=== PATIENT | female | born 1985 | race Caucasian/White ===

== ENCOUNTER 2022-01-02 15:51 | Emergency (ER) | payer OTHER ==
--- OUTSIDE RECORDS SUMMARY | 2022-01-02 15:58 | XMS REPORT | Continuity of Care Document ---
:1985 Author Organization [facility] t Address [address] [place] [address] Care Team Providers Name Role Phone Iasak Worley Primary Care Physician ALLY MILLER Attending Clinician Unavailable STELLA LUQUE Attending Clinician Unavailable Tia Cardenas Attending Clinician Unavailable RAFAEL TODD Attending Clinician Unavailable TAMMY Attending Clinician Unavailable Pallavi Felix RN Attending Clinician Unavailable Sarah Herring MA Attending Clinician Unavailable STELLA LUQUE Attending Clinician Unavailable SUZETTE SMITH Attending Clinician Unavailable MATEO MADERA M.D. Attending Clinician Unavailable STELLA LUQUE M.D. Attending Clinician Unavailable JOVI SULTANA M.D. Attending Clinician Unavailable SUZETTE SMITH M.D. Attending Clinician Unavailable ALLY MILLER M.D. Attending Clinician UnavailREBEL Lebron M.D. Attending Clinician Unavailable SINDHU KILPATRICK M.D. Attending Clinician Unavailable OB/MD, POSPROVIDER Attending Clinician Unavailable OB/MD, HIGH Attending Clinician Unavailable FANNINEKG, WALK-INS Attending Clinician Unavailable OB/RES, US Attending Clinician Unavailable OB/RES, ULTRASOUND Attending Clinician Unavailable SYMONE MCKAY M.D. Attending Clinician Unavailable PANFILO MORA M.D. Attending Clinician Unavailable STELLA LUQUE M.D. 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 00:00: without without 00 status status epilepticu epilepticu s s Neuropsych Neuropsych Disease Active 2020-04 U T iatric iatric 05-01 Health disorder disorder 00:00: 00 History of History of Problem Resolve UT Anxiety Anxiety d Physici ans History of History of Problem Resolve UT Dyslexia Dyslexia d Physic i ans Exercise-i Exercise-i Problem Active U T nduced nduced Physici shortness shortness ans of breath of breath Tobacco Tobacco Problem Active UT smoke smoke Physici exposure exposure ans Siria Siria Problem Active UT infection infection Phys ici of genital of genital an s region region Bacterial Bacterial Problem Active UT vaginosis vaginosis Phys ici ans Abnormal Abnormal Problem Active UT glucose glucose Physici tolerance tolerance ans in in HRP (high HRP (high Problem Active UT risk risk Physici ) ) an s Seizure Seizure Problem Active UT disorder disorder Physic i ans History of History of Problem Active U T 2 2 Ph ysici sections sections ans Problem Active U T exam exam Physici ans Thyroid Thyroid Problem Active UT nodule nodule Physici ans 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 Physic i of of ans unspecifie unspecifie d kidney d 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 Phys ici ans 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 Hypoglycem Hypoglycem Problem Active U T ia ia Physici ans History of History of Problem Resolve UT tuberous tuberous d Physic i sclerosis sclerosis ans Allergies, Adverse Reactions, Alerts Allergy Allergy Status Severity Reaction(s) Onset Inactive Treating Comm ents Source Name Type Date Date Clinician Penicill Allergy Active UT ins to drug Physici (finding ans ) NEUROTIN Adverse Active RASH Common Reaction [facility] PCN Adverse Active raSH Common Reaction [facility] Family History Family Member Diagnosis Comments Start Date Stop Date Source natural daughter Family history of [facility] tuberous sclerosis Social History Social Habit Start Date Stop Date Quantity Comments Source Exposure to SARS-CoV-2 Not sure [facility] (event) Sex Assigned At [birth year] [facility] 00:00:00 00:00:00 Smoking Status Start Date Stop Date Source Smokes tobacco daily (finding) [facility] Tobacco smoking consumption unknown [facility] Medications Ordered Filled Start Stop Current Ordering Indication Dosage Frequency Signature Comments Components Source Medication Medication Date Date Medication? Clinician (SIG) Name Name everolimus 2020-04 Yes [id number] TAKE 1 U T ([employer]) 2-13 TABLET (5 Heal th 5 MG tablet 00:00: MG TOTAL) 00 BY MOUTH 1 (ONE) TIME EACH DAY. SWALLOW WHOle with a glass of water. Do not take any tablet that is broken or cr everolimus 2020-04 Yes TAKE 1 U T ([employer]) 2-13 TABLET (5 Heal th 5 MG tablet 00:00: MG TOTAL) 00 BY MOUTH 1 (ONE) TIME EACH DAY. SWALLOW WHOle with a glass of water. Do not take any tablet that is broken or cr everolimus 2020-04 Yes [id number] TAKE 1 U T ([employer]) 2-13 TABLET (5 Heal th 5 MG tablet 00:00: MG TOTAL) 00 BY MOUTH 1 (ONE) TIME EACH DAY. SWALLOW WHOle with a glass of water. Do not take any tablet that is broken or cr everolimus 2020-04 Yes [id number] TAKE 1 U T ([employer]) 2-13 TABLET (5 Heal th 5 MG tablet 00:00: MG TOTAL) 00 BY MOUTH 1 (ONE) TIME EACH DAY. SWALLOW WHOle with a glass of water. Do not take any tablet that is broken or cr everolimus 2020-04 Yes [id number] TAKE 1 U T ([employer]) 2-13 TABLET (5 Heal th 5 MG tablet 00:00: MG TOTAL) 00 BY MOUTH 1 (ONE) TIME EACH DAY. SWALLOW WHOle with a glass of water. Do not take any tablet that is broken or cr everolimus 2020-04 Yes [id number] TAKE 1 U T ([employer]) 2-13 TABLET (5 Heal th 5 MG tablet 00:00: MG TOTAL) 00 BY MOUTH 1 (ONE) TIME EACH DAY. SWALLOW WHOle with a glass of water. Do not take any tablet that is broken or cr everolimus 2020-04 Yes [id number] TAKE 1 U T ([employer]) 2-13 TABLET (5 Heal th 5 MG tablet 00:00: MG TOTAL) 00 BY MOUTH 1 (ONE) TIME EACH DAY. SWALLOW WHOle with a glass of water. Do not take any tablet that is broken or cr everolimus 2020-04 Yes TAKE 1 U T ([employer]) 2-13 TABLET (5 Heal th 5 MG tablet 00:00: MG TOTAL) 00 BY MOUTH 1 (ONE) TIME EACH DAY. SWALLOW WHOle with a glass of water. Do not take any tablet that is broken or cr everolimus 2020-04 Yes TAKE 1 U T ([employer]) 2-13 TABLET (5 Heal th 5 MG tablet 00:00: MG TOTAL) 00 BY MOUTH 1 (ONE) TIME EACH DAY. SWALLOW WHOle with a glass of water. Do not take any tablet that is broken or cr everolimus 2020-04 Yes [id number] TAKE 1 U T ([employer]) 2-13 TABLET (5 Heal th 5 MG tablet 00:00: MG TOTAL) 00 BY MOUTH 1 (ONE) TIME EACH DAY. SWALLOW WHOle with a glass of water. Do not take any tablet that is broken or cr everolimus 2020-04 Yes [id number] TAKE 1 U T ([employer]) 2-13 TABLET (5 Heal th 5 MG tablet 00:00: MG TOTAL) 00 BY MOUTH 1 (ONE) TIME EACH DAY. SWALLOW WHOle with a glass of water. Do not take any tablet that is broken or cr Blood Blood 2018-0 Yes ALLY USE UT Glucose Glucose 6-14 CLINT- DIRECTED. Physici Monitor Monitor 00:00: AHSANA ans System System 00 M.D. w/Device w/Device Kit Kit Afinitor 5 Afinitor 5 2019-0 Yes SUZETTE 1 QD TAKE 1 UT MG Oral MG Oral 6-04 SMITH TABLET Phys ici Tablet Tablet 00:00: M.D. DAILY ans 00 FreeStyle FreeStyle Yes ALLY USE UT Lite Device Lite Device 09-03 CLINT- DIRECTED. Physici 00:00: BURITICA ans 00 M.D. FreeStyle FreeStyle Yes ALLY USE UT Lancets Lancets 09-03 CLINT- DIRECTED. Physici 00:00: BURITICA ans 00 M.D. FreeStyle FreeStyle Yes ALLY USE UT Lite Test Lite Test 09-03 CLINT- DIRECTED. Physici In Vitro In Vitro 00:00: BURITICA a ns Strip Strip 00 M.D. 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 28-0.8 MG 28-0.8 MG 7-05 Physi ci Oral Tablet Oral Tablet 00:00: ans 00 Immunizations Ordered Immunization Filled Immunization Date Status Commen ts Source Name Name Tdap 2017-01-02 Completed [facility] 00:00:00 Vital Signs Vital Name Observation Time Observation Value Comments Source BP Systolic 2018-09-02 117 mm[Hg] [facility] 08:58:00 BP Diastolic 2018-09-02 66 mm[Hg] [facility] 08:58:00 Height 2018-09-02 159 cm [facility] 08:58:00 Weight 2018-09-02 69 kg [facility] 08:58:00 Body Mass Index 2018-09-02 27.29 kg/m2 [facility] Physician s Calculated 08:58:00 Temperature 2018-09-02 98.4 [degF] [facility] 08:58:00 Heart Rate 2018-09-02 79 /min [facility] 08:58:00 Head Circumference 2018-09-02 55.5 cm [facility]ic ians 08:58:00 BP Systolic 2017 110 mm[Hg] Location: RUE; [place] [facility] 13:09:00 Position: Sitting BP Diastolic 2017 69 mm[Hg] Location: RUE; [facility] 13:09:00 Position: Sitting Height 2017 62 [in_us] [facility] 13:09:00 Weight 2017 148.5 [lb_av] [facility] 13:09:00 Body Mass Index 2017 27.16 kg/m2 [facility] Physician s Calculated 13:09:00 BP Systolic 2017-02-06 115 mm[Hg] Location: RUE; [facility] 09:49:00 Position: Sitting BP Diastolic 2017-02-06 65 mm[Hg] Location: RUE; [facility] 09:49:00 Position: Sitting Height 2017-02-06 62 [in_us] [facility] 09:49:00 Weight 2017-02-06 173 [lb_av] [facility] 09:49:00 Body Mass Index 2017-02-06 31.64 kg/m2 [facility] s Calculated 09:49:00 Temperature 2017-02-06 98.1 [degF] Method: Oral [facility] 09:49:00 Heart Rate 2017-02-06 71 /min [facility] 09:49:00 BP Systolic 2017-01-30 128 mm[Hg] Location: RUE; [facility] 09:24:00 Position: Sitting BP Diastolic 2017-01-30 77 mm[Hg] Location: RUE; [place] [facility] 09:24:00 Position: Sitting Height 2017-01-30 62 [in_us] [facility] 09:24:00 Weight 2017-01-30 171 [lb_av] [facility] 09:24:00 Body Mass Index 2017-01-30 31.28 kg/m2 [facility]ician s Calculated 09:24:00 Heart Rate 2017-01-30 76 /min [facility] 09:24:00 Procedures Procedure Date / Time Performed Performing Clinician Sour e [QL] CBC (INCLUDES DIFF/PLT) 2020-06-30 00:00:00 [facility] [QL] CMP W/EGFR 2020-06-30 00:00:00 [facility] s [QL] LIPID PANEL 2020-06-30 00:00:00 [facility] Physicia ns [QL] PHOSPHATE ( 2020-06-30 00:00:00 UT Physic ians PHOSPHORUS) [QL] PTH, INTACT (WITHOUT 2020-06-30 00:00:00 [facility] CALCIUM) [QL] MAGNESIUM 2020-06-30 00:00:00 [facility] Physician s [QL] CYSTATIN C 2020-06-30 00:00:00 [facility]ician s [QL] URINALYSIS, COMPLETE 2020-06-30 00:00:00 [facility] [QL] CBC (INCLUDES DIFF/PLT) 2020-04-26 00:00:00 [facility] [QL] CMP W/EGFR 2020-04-26 00:00:00 [facility] Physician s [QL] LIPID PANEL 2020-04-26 00:00:00 [facility] Physicia ns [QL] PHOSPHATE ( 2020-04-26 00:00:00 UT Physic ians PHOSPHORUS) [QL] PTH, INTACT (WITHOUT 2020-04-26 00:00:00 [facility] CALCIUM) [QL] URINALYSIS, COMPLETE 2020-04-26 00:00:00 [facility] [QL] CYSTATIN C 2020-04-26 00:00:00 [facility] Physician s [QL] MAGNESIUM 2020-04-26 00:00:00 [facility] Physician s MRI Abdomen with and without 2020-04-26 00:00:00 [facility] contrast [id number] [QL] CBC (INCLUDES DIFF/PLT) 2019-10-15 00:00:00 [facility] [QL] CMP W/EGFR 2019-10-15 00:00:00 [facility]ician s [QL] LIPID PANEL 2019-10-15 00:00:00 [facility] Physicia ns [QL] PHOSPHATE ( 2019-10-15 00:00:00 UT Physic ians PHOSPHORUS) [QL] PTH, INTACT (WITHOUT 2019-10-15 00:00:00 [facility] CALCIUM) [QL] MAGNESIUM 2019-10-15 00:00:00 [facility] Physician s [QL] URINALYSIS, COMPLETE 2019-10-15 00:00:00 [facility] MRI Abdomen with and without 2019-09-05 00:00:00 [facility] contrast [id number] EEG 2018-09-03 00:00:00 [facility] Physician s US Thyroid [id number] 2018-09-03 00:00:00 [facility] Physicia ns [QLH] CMP W/EGFR 2018-09-02 00:00:00 [facility] Phys[facility] ns [QLH] CBC (INCLUDES 2018-09-02 00:00:00 [facility] DIFF/PLT) [Q] EVEROLIMUS, BLOOD 2018-09-02 00:00:00 [facility] [QLH] LIPID PANEL 2018-09-02 00:00:00 [facility] Physici ans [QLH] PTH, INTACT (WITHOUT 2018-09-02 00:00:00 [facility] CALCIUM) [QLH] PHOSPHATE ( 2018-09-02 00:00:00 [facility] c[facility] PHOSPHORUS) [QL] THYROID PANEL WITH TSH, 2018-09-02 00:00:00 [facility] 3RD GENERATION [QLH] T4, FREE 2018-09-02 00:00:00 [facility] [QH] THYROGLOBULIN PANEL 2018-09-02 00:00:00 [facility] [QH] THYROGLOBULIN 2018-09-02 00:00:00 [facility] ANTIBODIES [QLH] INSULIN 2018-09-02 00:00:00 [facility] [QH] PROINSULIN 2018-09-02 00:00:00 [facility] s [QLH] HEMOGLOBIN A1c 2018-09-02 00:00:00 [facility] [QLH] C-PEPTIDE 2018-09-02 00:00:00 [facility] s [QLH] THYROID PEROXIDASE 2018-09-02 00:00:00 [facility] ANTIBODIES US Thyroid [id number] 2018-07-05 00:00:00 [facility] ns [Q] HCG, TOTAL, QL 2018-06-06 00:00:00 [facility] i[facility] MRI Brain w/wo contrast 2018-05-23 00:00:00 [facility] 00376 MRI Abdomen with and without 2018-05-23 00:00:00 [facility] contrast [id number] CT Chest wo contrast [id number] 2018-05-23 00:00:00 [facility] MRI Abdomen with and without 2017-10-10 00:00:00 [facility] contrast [id number] MRI Brain w/wo contrast 2017-10-10 00:00:[address] [facility] [address] [address] CT Chest w/wo contrast 12640 2017-10-10 00:00:00 [facility] EKG w/Rhythm Strip 2017-01-30 00:00:00 [facility] [Q] HIV AB, HIV 1/2, EIA, 2017-01-30 00:00:00 [facility] WITH REFLEXES History of Section [facility] Plan of Care Planned Activity Planned Date Details Comments Source Diagnostic Test 2020-04-26 [QL] CBC (INCLUDES [facility] Pending 00:00:00 DIFF/PLT) [code = [QL] CBC (INCLUDES DIFF/PLT)] Diagnostic Test 2020-04-26 [QL] CMP W/EGFR [facility] Pending 00:00:00 [code = [QL] CMP W/EGFR] Diagnostic Test 2020-04-26 [QL] LIPID PANEL [facility] Pending 00:00:00 [code = [QL] LIPID PANEL] Diagnostic Test 2020-04-26 [QL] PHOSPHATE ( [facility] Pending 00:00:00 PHOSPHORUS) [code = [QL] PHOSPHATE ( PHOSPHORUS)] Diagnostic Test 2020-04-26 [QL] PTH, INTACT [facility] Pending 00:00:00 (WITHOUT CALCIUM) [code = [QL] PTH, INTACT (WITHOUT CALCIUM)] Diagnostic Test 2020-04-26 [QL] URINALYSIS, [facility] Pending 00:00:00 COMPLETE [code = [QL] URINALYSIS, COMPLETE] Diagnostic Test 2020-04-26 [QL] CYSTATIN C [facility] Pending 00:00:00 [code = [QL] CYSTATIN C] Diagnostic Test 2020-04-26 [QL] MAGNESIUM [facility] ans Pending 00:00:00 [code = [QL] MAGNESIUM] Diagnostic Test 2020-04-26 [QL] CBC (INCLUDES [facility] Pending 00:00:00 DIFF/PLT) [code = [QL] CBC (INCLUDES DIFF/PLT)] Diagnostic Test 2020-04-26 [QL] CMP W/EGFR [facility] i[facility] Pending 00:00:00 [code = [QL] CMP W/EGFR] Diagnostic Test 2020-04-26 [QL] LIPID PANEL [facility] Pending 00:00:00 [code = [QL] LIPID PANEL] Diagnostic Test 2020-04-26 [QL] PHOSPHATE ( [facility] Pending 00:00:00 PHOSPHORUS) [code = [QL] PHOSPHATE ( PHOSPHORUS)] Diagnostic Test 2020-04-26 [QL] PTH, INTACT [facility] Pending 00:00:00 (WITHOUT CALCIUM) [code = [QL] PTH, INTACT (WITHOUT CALCIUM)] Diagnostic Test 2020-04-26 [QL] URINALYSIS, [facility] Pending 00:00:00 COMPLETE [code = [QL] URINALYSIS, COMPLETE] Diagnostic Test 2020-04-26 [QL] CYSTATIN C [facility] i[facility] Pending 00:00:00 [code = [QL] CYSTATIN C] Diagnostic Test 2020-04-26 [QL] MAGNESIUM [facility] ans Pending 00:00:00 [code = [QL] MAGNESIUM] Diagnostic Test 2019-01-31 US Thyroid 64082 [facility] Pending 00:00:00 [code = 55068] Future Scheduled MRI Abdomen with After 10Oct2017 [facility] Test and without contrast 67046 [code = 62620] Future Scheduled MRI Brain w/wo After [id number] [facility] Test contrast 80139 [code = 34433] Future Scheduled CT Chest w/wo After [id number] [facility] Test contrast 97679 [code = 78668] Future Scheduled MRI Abdomen with After [id number] [facility] Test and without contrast 98741 [code = 31701] Future Scheduled MRI Brain w/wo After [id number] [facility] Test contrast 43896 [code = 58876] Future Scheduled CT Chest w/wo After [id number] [facility] Test contrast 85947 [code = 80831] Future Scheduled [Q] HCG, TOTAL, QL After 06Jun2018 [facility] Test [code = [Q] HCG, TOTAL, QL] Future Scheduled [Q] HCG, TOTAL, QL After 06Jun2018 [facility] Test [code = [Q] HCG, TOTAL, QL] Future Scheduled US Thyroid 47543 After 05Jul2018 [facility] Test [code = 66230] Future Scheduled US Thyroid 23309 After 05Jul2018 [facility] Test [code = 57904] Future Scheduled [QLH] CMP W/EGFR Approx [id number] [facility] Test [code = [QLH] CMP W/EGFR] Future Scheduled [QLH] CBC Approx [id number] [facility] Test (INCLUDES DIFF/PLT) [code = [QLH] CBC (INCLUDES DIFF/PLT)] Future Scheduled [Q] EVEROLIMUS, Approx [id number] [facility] Test BLOOD [code = [Q] EVEROLIMUS, BLOOD] Future Scheduled [QLH] LIPID PANEL Approx [id number] [facility] Test [code = [QLH] LIPID PANEL] Future Scheduled [QLH] PTH, INTACT Approx [id number] [facility] Test (WITHOUT CALCIUM) [code = [QLH] PTH, INTACT (WITHOUT CALCIUM)] Future Scheduled [QLH] PHOSPHATE Approx [id number] [facility] Test ( PHOSPHORUS) [code = [QLH] PHOSPHATE ( PHOSPHORUS)] Future Scheduled [QLH] CMP W/EGFR Approx [id number] [facility] Test [code = [QLH] CMP W/EGFR] Future Scheduled [QLH] CBC Approx [id number] [facility] Test (INCLUDES DIFF/PLT) [code = [QLH] CBC (INCLUDES DIFF/PLT)] Future Scheduled [Q] EVEROLIMUS, Approx [id number] [facility] Test BLOOD [code = [Q] EVEROLIMUS, BLOOD] Future Scheduled [QLH] LIPID PANEL Approx [id number] [facility] Test [code = [QLH] LIPID PANEL] Future Scheduled [QLH] PTH, INTACT Approx [id number] [facility] Test (WITHOUT CALCIUM) [code = [QLH] PTH, INTACT (WITHOUT CALCIUM)] Future Scheduled [QLH] PHOSPHATE Approx [id number] [facility] Test ( PHOSPHORUS) [code = [QLH] PHOSPHATE ( PHOSPHORUS)] Encounters Start End Encounter Admission Attending Care Care Encounter Source Date/Time Date/Time Type Type Clinicians Facility Department ID 2021-12-30 Outpatient [facility] [id number] [place] 10:30:55 [id number] [facility] 2021-12-29 Outpatient [facility] [id number] [place] 13:08:25 [id number] [facility] 2021-11-18 Outpatient [facility] [id number] UT 15:16:36 [id number] [facility] 2021-09-12 Outpatient [facility] [id number] UT 14:29:50 URITICA, [id number] [facility] 2021-09-05 Outpatient [facility] [id number] UT 06:56:35 [id number] [facility] 2021-08-23 Outpatient [facility] [id number] UT 08:06:49 URITICA, [id number] [facility] 2021-07-19 Outpatient REBEL, [facility] [id number] UT 07:01:58 STELLA [id number] [facility] 2021-07-06 Outpatient REBEL, [facility] [id number] UT 09:52:11 STELLA [id number] [facility] 2021-05-17 Outpatient HARIKA Cardenas [facility] [id number] Common 09:12:01 [facility] 2021-04-27 Outpatient HARIKA Cardenas [facility] [id number] Common 14:34:17 Tia [facility] 2021-04-27 Outpatient Theresa, STLMLC STLMLC [id number] Common 13:20:36 Tia [id number] [facility] 2021-04-27 Outpatient Theresa, STLMLC STLMLC [id number] Common 13:14:17 Tia [id number] [facility] 2022-08-02 2022-08-02 Outpatient PEYTON, [facility] [id number] [place] 15:00:00 15:00:00 [facility] 2022-01-02 2022-01-02 Outpatient [facility] [id number] [place] 11:00:00 11:00:00 Pedro FRENCH 2021-10-20 2021-10-20 ambulatory STLMLC STLC [id number] Common 00:00:00 00:00:00 [facility] 2021-10-11 2021-10-11 Outpatient HEAVEN EVANGELISTA [facility] [id number] [place] 02:29:00 02:29:00 HN [id number] [facility] 2021-09-05 2021-09-05 Telephone Pallavi Felix UTP [id number] 1.2.84 0.114 [id number] [place] 00:00:00 00:00:[address] [id number] Health [id number] [id number] 2021-09-02 2021-09-02 Telephone Kaelynyohana Pallavi UTP 6410 1.2.84 0.114 [id number] UT 00:00:00 00:00:[address] [id number] Health 9.2.7.2.686 [id number] 2021-08-23 2021-08-23 Telephone Kaelynyohana Pallavi UTP 6410 1.2.84 0.114 [id number] [place] 00:00:00 00:00:[address] [id number] Health [id number] [id number] 2021-07-21 2021-07-21 ambulatory STLMLC STLMLC [id number] Common 00:00:00 00:00:00 [facility] 2021-07-19 2021-07-19 TelemedicNICCI Peralta [id number] [id number] [place] 08:45:00 09:54:[address] [id number] Health 9.2.7.2.686 [id number] 2021-07-18 2021-07-18 Telephone Sarah Herring UTP 6410 [id number] [place] 00:00:00 00:00:[address] [id number] Health 9.2.7.2.686 [id number] 2021-07-12 2021-07-12 Telephone Pallavi Felix UTP 6410 1.2.84 0.114 [id number] [place] 00:00:00 00:00:[address] [id number] Health 9.2.7.2.686 [id number] 2021-07-01 2021-07-01 Telephone Pallavi Felix UTP 6410 1.2.84 0.114 [id number] [place] 00:00:00 00:00:[address] [id number] Health 9.2.7.2.686 [id number] 2021-06-07 2021-06-07 Telephone Pallavi Felix UTP 6410 1.2.84 0.114 [id number] [place] 00:00:00 00:00:[address] [id number] Health 9.2.7.2.686 [id number] 2021-05-26 2021-05-26 ambulatory STLMLC STLMLC [id number] Common 00:00:00 00:00:00 [facility] 2021-05-26 2021-05-26 Telephone Pallavi Felix UTP 6410 1.2.84 0.114 [id number] [place] 00:00:00 00:00:00 Pallavi Felix [id number] Health 9.2.7.2.686 [id number] 2021-05-19 2021-05-19 ambulatory STLMLC STLMLC [id number] Common 00:00:00 00:00:00 [facility] 2021-04-27 2021-04-27 Telephone Pallavi Felix UTP [id number] 1.2.84 0.114 [id number] [place] 00:00:00 00:00:00 Pallavi Felix [id number] Health 9.2.7.2.686 [id number] 2021-04-21 2021-04-21 Telephone Pallavi Felix UTP 6410 1.2.84 0.114 [id number] [place] 00:00:00 00:00:00 Pallavi Felix [id number] Health 9.2.7.2.686 [id number] 2021-02-15 2021-02-15 Outpatient REBEL, [facility] [id number] [facility] 12:08:00 23:59:00 STELLA 2021-02-01 2021-02-01 EXT [facility] OP Rebel, EXT MSRDP 1.2.840.114 [id number] [place] 00:00:00 00:00:00 Stella Shaw [facility] [id number] Health 9.2.7.2.686 [id number] 2020-09-27 2020-09-[address] [facility] [id number] SLE 00:00:00 00:00:00 SUZETTE 2020-07-22 2020-07-22 Outpatient MAX SMITH, [facility] [id number] SLE 00:00:00 00:00:00 SUZETTE 2018-11-11 2018-11-11 [facility] UTP [id number] [place] 14:45:00 14:45:00 t; ALEE, Physic i Lolis MCINTYRE ROSA, M.D. 2018-09-02 2018-09-02 AppointNICCI Dexter Pedi [id number] [place] 09:45:00 09:45:00 t; STELLA LUQUE, Nephrology Physici STELLA SHAW M.D. & amara Danielle Hypertensio n 2018-09-02 2018-09-02 Abiola SULTANA [facility] Pediatrics [id number] [place] 09:30:00 09:30:00 t; Lolis ESPANA Division of Physici KAYY, Medical ans Lolis ESPANA Genetics 2018-09-02 2018-09-02 NICCI Mckeon Pedi [id number] [place] 09:00:00 09:00:00 t; SUZETTE, Nephrology Phtaz SMITH M.D. & Brock Crandall M.D. n 2018-09-02 2018-09-02 Abiola GRAJEDA Pedi [id number] [place] 09:00:00 09:00:00 t; GILLIAN, Nephrology Ph chavez CANALES M.D. & Brock Pimentel n M.D. 2018-06-27 2018-06-27 Out[facility] [id number] Common 15:00:00 15:00:00 [facility] 2018-06-21 2018-06-21 Outpatient [facility] [id number] Common 12:00:00 12:00:00 t [facility] [address] Family [facility] Family Medicine [facility] 2017-04-27 2017-04-27 Appointjeff GRAJEDA UTP [id number] [place] 10:45:00 10:45:00 t; TODD LYNN Physi ci REBEL LYNN ans CHELSEA, M.D. M.D. 2017-03-28 2017-03-28 AppointNICCI Doshi UTP [id number] [place] 09:30:00 09:30:00 t; SINDHU KILPATRICK M.D. P hysici FARAH, ans M.D. 2017 2017 Appointmen OB/MD, UTP [employer] Supervisor [id number] [place] 13:30:00 13:30:00 t; OB/MD, POSPROVIDER Physici POSPROVIDE ans R 2017-02-06 2017-02-06 Appointmen OB/MD, HIGH UTP UTP [id number] [place] 10:00:00 10:00:00 t; OB/MD, Phys ici HIGH ans 2017-01-30 2017-01-30 Appointmen FANNINEKG, UTP UTP [id number] [place] 10:30:00 10:30:00 t; WALK-INS Physi ci FANNINEKG, ans WALK-INS 2017-01-30 2017-01-30 Appointmen OB/MD, HIGH UTP UTP [id number] [place] 09:00:00 09:00:00 t; OB/MD, Phys ici HIGH ans 2017-01-02 2017-01-02 Appointmen OB/MD, HIGH UTP UTP [id number] [place] 09:00:00 09:00:00 t; OB/MD, Phys ici HIGH ans 2016-12-28 2016-12-28 Appointmen OB/RES, US UTP UTP [id number] [place] 10:00:00 10:00:00 t; OB/RES, Phy sici US ans 2016-12-19 2016-12-19 Appointmen OB/MD, HIGH UTP UTP [id number] [place] 09:00:00 09:00:00 t; OB/MD, Phys ici HIGH ans 2016-11-02 2016-11-02 Appointmen OB/MD, HIGH UTP UTP [id number] [place] 10:00:00 10:00:00 t; OB/MD, Phys ici HIGH ans 2016-10-19 2016-10-19 Appointmen OB/RES, UTP UTP [id number] [place] 14:30:00 14:30:00 t; OB/RES, ULTRASOUND Physici ULTRASOUND ans 2016-10-19 2016-10-19 Appointmen OB/MD, HIGH UTP UTP [id number] [place] 08:30:00 08:30:00 t; OB/MD, Phys ici HIGH ans 2016-10-04 2016-10-04 Appointmen WOODY, UTP UTP [id number] [place] 08:00:00 08:00:00 t; SYMONE MCKAY, Lolis Acevedo M.D. 2016-07-31 2016-07-31 [facility] UTP [id number] [place] 09:30:00 09:30:00 t; Lolis ESPANA ans HOPE, M.D. 2015-11-25 2015-11-25 [facility] [id number] [place] 09:30:00 09:30:00 t; PANFILO MORA M.D. Physici KEELY, ans M.D. 2015-05-27 2015-05-27 [facility] [id number] [place] 08:45:00 08:45:00 t; PANFILO MORA M.D. Physici KEELY, ans M.D. 2015-03-08 2015-03-08 [facility] [id number] [place] 09:30:00 09:30:00 t; Lolis ESPANA ans HOPE, M.D. 2015-03-08 2015-03-08 [facility] [id number] [place] 09:15:00 09:15:00 t; STELLA LUQUE M.D. Physici MARY, M.D. ans Results Test Description Test Time Test Comments Results Result Comments Source [QL] URINALYSIS, COMPLETE 2020-07-09 11:30:00 Test Item Value Reference Range Interpretation Comme nts COLOR; Normal (test code = YELLOW YELLOW N 5778-6) APPEARANCE (test code = CLEAR CLEAR N APPEARANCE) SPECIFIC GRAVITY; Normal (test 1.009 1.001-1.035 N code = 2965-2) PH; Normal (test code = 5.5 5.0-8.0 N 2756-5) GLUCOSE; Normal (test code = NEGATIVE NEGATIVE N 1547-9) BILIRUBIN; Normal (test code = NEGATIVE NEGATIVE N 58852-5) KETONES; Normal (test code = NEGATIVE NEGATIVE N 42991-4) OCCULT BLOOD; Normal (test NEGATIVE NEGATIVE N code = 47369-0) PROTEIN; Normal (test code = NEGATIVE NEGATIVE N 28788-5) NITRITE; Normal (test code = NEGATIVE NEGATIVE N 73323-7) LEUKOCYTE ESTERASE (test code NEGATIVE NEGATIVE N = LEUKOCYTE ESTERASE) WBC; Normal (test code = NONE SEEN See_Comment N [A utomated message] The system 6690-2) which generated this result transmitted ref erence range: < OR = 5. The ref erence range was not used to int erpret this result as gus l/abnormal. RBC; Normal (test code = NONE SEEN See_Comment N [A utomated message] The system 789-8) which generated this result transmitted ref erence range: < OR = 2. The ref erence range was not used to int erpret this result as gsu l/abnormal. SQUAMOUS EPITHELIAL CELLS; NONE SEEN See_Comment N [Automated message] The system Normal (test code = 18273-6) which generated this result transmitted ref erence range: < OR = 5. The ref erence range was not used to int erpret this result as gus l/abnormal. BACTERIA; Abnormal (test code MANY NONE SEEN A = 630-4) HYALINE CAST; Normal (test NONE SEEN NONE SEEN N code = 48595-2) [facility][QL] CBC (INCLUDES DIFF/PLT)2020-07-09 11:30:00 Test Item Value Reference Range Interpretation Comments WHITE BLOOD CELL COUNT 4.9 {Thousand/u} 3.8-10.8 N (test code = WHITE BLOOD CELL COUNT) RED BLOOD CELL COUNT (test 4.03 {Million/uL} 3.80-5.10 N code = RED BLOOD CELL COUNT) HEMOGLOBIN; Below Low 11.4 g/dl 11.7-15.5 Threshold (test code = 76348-9) HEMATOCRIT; Normal (test 35.6 % 35.0-45.0 N code = 4544-3) MCV; Normal (test code = 88.3 fL 80.0-100.0 N 787-2) MCHC; Normal (test code = 32.0 g/dl 32.0-36.0 N 15021-1) RDW; Normal (test code = 12.7 % 11.0-15.0 N 788-0) PLATELET COUNT; Normal 342 {Thousand/u} 140-400 N (test code = 777-3) MPV; Normal (test code = 9.6 fL 7.5-12.5 N 49388-1) ABSOLUTE NEUTROPHILS (test 3048 {cells/uL} 1257-2882 N code = ABSOLUTE NEUTROPHILS) ABSOLUTE LYMPHOCYTES (test 1230 {cells/uL} 850-3900 N code = ABSOLUTE LYMPHOCYTES) ABSOLUTE MONOCYTES (test 466 {cells/uL} 200-950 N code = ABSOLUTE MONOCYTES) ABSOLUTE EOSINOPHILS (test 118 {cells/uL} 15-500 N code = ABSOLUTE EOSINOPHILS) ABSOLUTE BASOPHILS (test 39 {cells/uL} 0-200 N code = ABSOLUTE BASOPHILS) NEUTROPHILS (test code = 62.2 % N NEUTROPHILS) LYMPHOCYTES (test code = 25.1 % N LYMPHOCYTES) MONOCYTES; Normal (test 9.5 % N code = 01865-7) EOSINOPHILS; Normal (test 2.4 % N code = 11347-2) BASOPHILS; Normal (test 0.8 % N code = 57045-2) [facility][QL] LIPID [id number] 11:30:00 Test Item Value Reference Range Interpretation Comments CHOLESTEROL, TOTAL; 152 mg/dl <200 N Normal (test code = 2092-3) HDL CHOLESTEROL; 53 mg/dl See_Comment N [Automated message] Normal (test code = The syst em which 2084-12) generated this result transmit cornell reference range : > OR = 50. The reference range was not used to interpret this result as normal/abnormal . TRIGLYCERIDES; 66 mg/dl <150 N Normal (test code = 2571-8) LDL-CHOLESTEROL; 84 {MG/DL JASBIR} N Reference range: Normal (test code = <100 Zhao irable range 64476-8) <100 mg/dL for primary prevent ion; <70 mg/dL for patients with C HD or diabetic patien ts with > or = 2 C HD risk factors. L DL-C is now calculat ed using the Johnson-Amadeo calculation, wh ich is a validated novel method providin g better accuracy than the Friedewald equation in the estimation of L DL-C. Johnson SS et al . TIARRA. 2013;310( 19): 8296-6109 (http://educati on.Sangart. com/f aq/XTY769) CHOL/HDLC RATIO 2.9 {CALC} <5.0 N (test code = CHOL/HDLC RATIO) NON HDL CHOLESTEROL 99 {MG/DL JASBIR} <130 N For pa tients with (test code = NON HDL diabete s plus 1 CHOLESTEROL) major ASCVD ris k factor, treatin g to a non-HDL-C goa l of <100 mg/dL (LDL -C of <70 mg/dL) is considered a therapeutic opt ion. [facility][QL] [id number] 11:30:00 Test Item Value Reference Range Interpretation Comments MAGNESIUM (test code = MAGNESIUM) 1.8 mg/dl 1.5-2.5 N [facility][QL] PHOSPHATE ( PHOSPHORUS)2020-07-09 11:30:00 Test Item Value Reference Range Interpretation Comments PHOSPHATE ( PHOSPHORUS) (test 3.2 mg/dl 2.5-4.5 N code = PHOSPHATE ( PHOSPHORUS)) [facility][QL] CMP [id number] 11:30:00 Test Item Value Reference Range Interpretation Comments GLUCOSE; Normal 89 mg/dl 65-99 N Fasting refe rence (test code = interval 1547-9) UREA NITROGEN (BUN) 20 mg/dl 7-25 N (test code = UREA NITROGEN (BUN)) CREATININE (test 1.03 mg/dl 0.50-1.10 N code = CREATININE) eGFR NON-AFR. 70 {ML/MIN/1.7} See_Comment N [Automated PORTUGUESE (test code message] The system = eGFR NON-AFR. which genera cornell PORTUGUESE) this result transmitted reference range : > OR = 60. The reference range was not used to interpret this result as normal/abnormal . eGFR 82 {ML/MIN/1.7} See_Comment N [Automated PORTUGUESE (test code message] The system = eGFR which generat ed PORTUGUESE) this result transmitted reference range : > OR = 60. The reference range was not used to interpret this result as normal/abnormal . BUN/CREATININE NOT APPLICABLE 6-22 RATIO (test code = BUN/CREATININE RATIO) SODIUM (test code = 141 mmol/L 135-146 N SODIUM) POTASSIUM (test 4.8 mmol/L 3.5-5.3 N code = POTASSIUM) CHLORIDE (test code 106 mmol/L 98-110 N = CHLORIDE) CARBON DIOXIDE 28 mmol/L 20-32 N (test code = CARBON DIOXIDE) CALCIUM (test code 9.3 mg/dl 8.6-10.2 N = CALCIUM) PROTEIN, TOTAL 6.9 g/dl 6.1-8.1 N (test code = PROTEIN, TOTAL) ALBUMIN (test code 4.4 g/dl 3.6-5.1 N = ALBUMIN) GLOBULIN (test code 2.5 {G/DL CALC} 1.9-3.7 N = GLOBULIN) ALBUMIN/GLOBULIN 1.8 {CALC} 1.0-2.5 N RATIO (test code = ALBUMIN/GLOBULIN RATIO) BILIRUBIN, TOTAL; 0.3 mg/dl 0.2-1.2 N Normal (test code = 58519-6) ALKALINE 52 u/l 31-125 N PHOSPHATASE (test code = ALKALINE PHOSPHATASE) AST; Normal (test 20 u/l 10-30 N code = 1916-6) ALT; Normal (test 20 u/l 6-29 N code = 1742-6) [facility][QL] PTH, INTACT (WITHOUT CALCIUM)2020-07-09 11:30:00 Test Item Value Reference Interpretation Comments Range PARATHYROID 152 pg/ml 14-64 Interpretive Gu hiro Intact PTH HORMONE, INTACT Calcium----- (test code = ---- ---Normal PARATHYROID Parathyroid Nor mal HORMONE, INTACT) NormalHypop arathyroidism Low or Low Normal LowHyperparathy roidism Primary Normal or High High Secondary High Normal or Low Tertiary High HighNon-Parathy roid Hypercalcemia L ow or Low Normal High REPORT COMMENT:FASTING:[facility][Q] CYSTATIN C WITH [id number] 11:30:00 Test Item Value Reference Range Interpretation Comments CYSTATIN C (test 1.38 mg/L 0.52-1.24 code = CYSTATIN C) eGFR (test code = 52 {ML/MIN/1.7} See_Comment [Autom ated message] eGFR) The system [employer] generated this result transmitted ref erence range: > OR = 6 0. The reference range was not used to int erpret this result as normal/abnormal . REPORT COMMENT:FASTING:[facility]] [id number] 12:13:01 Test Item Value Reference Range Interpretation Comments Insulin Level Total 4.0 {uIU/ml} Referenc e Ranges for (test code = 3695-4) Insulin after 12-hour fast: 3-19 uIU/ mL, a non-fastingrang e has not been establ ished. [facility]] CMP [id number] 12:13:01 Test Item Value Reference Range Interpretation Comments Sodium Level 142 {mEq/l} 135-145 (test code = 2951-2) Potassium Level 4.3 {mEq/l} 3.5-5.1 (test code = 2823-3) Chloride Level; 110 {mEq/l} 95-109 Above High Threshold (test code = 5-0) Carbon Dioxide 25 {mEq/l} 24-32 (test code = 2027-9) AGAP (test code = 11.3 {mEq/l} 10.0-20.0 96329-9) Glucose Lvl (test 81 mg/dl 70-99 Adult refe rence range code = 2345-7) values reflec t the clinical guidel inesof the [place] Diabet es Association. Creatinine Lvl 1.10 mg/dl 0.50-1.40 (test code = 2160-0) Blood Urea 18 mg/dl 7-22 Nitrogen (test code = 3094-0) BUN/Creatinine 16 6-25 Ratio (test code = 3097-3) Total Protein 7.3 g/dl 6.4-8.4 (test code = 2885-2) Albumin Lvl (test 3.9 g/dl 3.5-5.0 code = 1751-7) Globulin (test 3.4 g/dl 2.7-4.2 code = 89620-5) A/G Ratio (test 1.1 0.7-1.6 code = 1759-0) Calcium Level 9.2 mg/dl 8.5-10.5 Total (test code = 68535-3) ALT (test code = 18 u/l 0-65 1743-4) AST (test code = 16 u/l 0-37 64743-1) Alk Phos (test 57 u/l 39-136 code = 1783-0) Bili Total (test 0.3 mg/dl 0.2-1.3 code = 1974-) eGFR (test code = 66 The eGFR i s calculated 13451-4) {ML/MIN/1.7} using the CKD-E PI formula. In mos t young, healthyindividu als the eGFR will be >9 0 mL/min/1.73m2. The eGFR declines with a ge. AneGFR of 60-89 may be normal in some population s, particularly th e elderly, forwhom the CKD -EPI formula has not been extensively zaida idated. Use of the eGFR isnot recommended in the following populations:Ind ividuals with unstable c reatinine concentrations, including patient s and those with seri ous co-morbid conditions.Phuong ents with extremes in mus rohith mass or diet.The colette a above are obtained fr om the National Kidney Disease Education Progr am(NKDEP) which ascencion edwards recommends that when the eGFR is used in patientswith ex tremes of body mass index for purposes of peter g dosing, the eGFR should be multiplied by t he estimated BMI. [facility]] LIPID [id number] 12:13:01 Test Item Value Reference Range Interpretation Comments Chol (test code = 2093-3) 124 mg/dl <=199 Trig (test code = 2571-8) 98 mg/dl <=149 HDL Cholesterol; Below Low 35 mg/dl >=61 Threshold (test code = 2085-9) CHD Risk; Below Low Threshold (test 3.54 3.90-5.80 code = 85637-2) LDL (test code = 03603-8) 69 mg/dl <=99 VLDL (test code = VLDL) 20 [facility]] PHOSPHATE ( PHOSPHORUS)2018-09-02 12:13:01 Test Item Value Reference Range Interpretation Comments Phosphorus Level (test code = 3.3 mg/dl 2.5-4.5 2777-1) [facility]] T4, [id number] 12:13:01 Test Item Value Reference Range Interpretation Comments T4 Free (test code = 3024-7) 1.10 ng/dl 0.76-1.46 [facility][QL] THYROID [id number] 12:13:01 Test Item Value Reference Range Interpretation Comments TSH (test code = 41431-0) 1.570 {uIU/ml} 0.360-3.740 T3 Uptake (test code = 3050-2) 35 % 31-39 Thyroxine (test code = 3026-2) 9.0 ug/dL 4.7-13.3 [facility][H] Free Thyroxine [id number] 12:13:01 Test Item Value Reference Range Interpretation Comments Free Thyroxine Index (test code = 3.2 75279-9) [facility][QL] CBC (INCLUDES DIFF/PLT)2018-09-02 12:13:01 Test Item Value Reference Range Interpretation Comments WBC (test code = 6690-2) 4.0 {K/CMM} 3.7-10.4 RBC; Below Low Threshold (test 3.92 {M/CMM} 4.20-5.40 code = 789-8) Hgb; Below Low Threshold (test 11.4 g/dl 12.0-16.0 code = 718-7) Hct; Below Low Threshold (test 33.8 % 36.0-48.0 code = 85003-7) MCV (test code = 787-2) 86.1 fL 80.0-98.0 MCH (test code = 785-6) 29.1 pg 27.0-31.0 MCHC (test code = 786-4) 33.8 g/dl 32.0-36.0 RDW (test code = 788-0) 13.4 % 11.5-14.5 Platelet (test code = 68968-9) 304 {K/CMM} 133-450 Mean Platelet Volume (test code 8.1 fL 7.4-10.4 = 46210-3) [facility][QL] [id number] 12:13:01 Test Item Value Reference Range Interpretation Comments Segmented Neutrophils (test code 60.2 % 45.0-75.0 = 29288-6) Monocytes (test code = 74708-3) 7.5 % 2.0-12.0 Lymphocytes (test code = 35201-5) 28.8 % 20.0-40.0 Eosinophils (test code = 89530-2) 2.7 % 0.0-4.0 Basophils (test code = 706-2) 0.8 % 0.0-1.0 Segs-Bands # (test code = 2.4 {K/CMM} 1.5-8.1 33585-1) Lymphocytes # (test code = 1.1 {K/CMM} 1.0-5.5 31327-0) Monocytes # (test code = 80073-7) 0.3 {K/CMM} 0.0-0.8 Eosinophils # (test code = 0.1 {K/CMM} 0.0-0.5 27430-9) [facility][QLH] PTH, INTACT (WITHOUT CALCIUM)2018-09-02 12:13:01 Test Item Value Reference Range Interpretation Comments Parathyroid Hormone Intact; Above 300.4 pg/ml 18.4-80.1 High Threshold (test code = 2731-8) [facility][QL[facility]] HEMOGLOBIN [id number] 12:13:01 Test Item Value Reference Range Interpretation Comments Hemoglobin A1c (test code = 4548-4) 4.8 % <=5.6 [facility][QH] THYROGLOBULIN [id number] 12:13:01 Test Item Value Reference Range Interpretation Comments Thyroglobulin Antibody (test code = <15 <=60 90261-5) [facility][QL[facility]] THYROID PEROXIDASE [id number] 12:13:01 Test Item Value Reference Range Interpretation Comments Thyroid Peroxidase (TPO) Antibody 36 {IU/ml} <=60 (test code = 90818-8) [facility][QH] [id number] 12:13:01 Test Item Value Reference Range Interpretation Comments Proinsulin Level (test 3.1 pmol/L 0.0-10.0 Perfo rmed At: BN code = Proinsulin [facility] Level) [address] [id number] ra Miguelina RICHARDSON Ph:[phone] [facility][QLH] TSH, 3RD [id number] 12:00:01 Test Item Value Reference Range Interpretation Comments TSH (test code = Cancel Reason: System 48276-9) Cancel [facility][O] Urine Dipstick (In Office)2018-09-02 10:25:00 Test Item Value Reference Range Interpretation Comments Glucose (test code = Glucose) NEGATIVE N LEUKOCYTES (test code = NEGATIVE N LEUKOCYTES) NITRITE; Normal (test code = NEGATIVE N 73258-4) UROBILINOGEN; Normal (test code = 0.2 N 56880-7) PROTEIN (test code = 36550-1) TRACE pH (test code = pH) 6.0 N URINE BLOOD; Normal (test code = NEGATIVE N 60875-3) SPECIFIC GRAVITY; Normal (test 1.020 N code = 2965-2) KETONES; Normal (test code = NEGATIVE N 58047-3) BILIRUBIN; Normal (test code = NEGATIVE N 69220-4) COLOR URINE (test code = 5778-6) DARK YELLOW [facility] Thyroid [id number] 11:49:00EXAM: US THYROIDDATE: 07/10/2018 11:49 CDTINDICATION: Q85.1 Tuberous sclerosis - Q85.1 Tuberous sclero sisADDITIONAL INFORMATION: Thyroid abnormalities identified on recent computedtomography scanCOMPARISON: None.TECHNIQUE: Multiplanar grayscale and color Doppler ultrasound images of theneck were obtained in the area of the thyroid.DISCUSSION:Thyroid parenchyma: Diffusely homogeneous in the underlying p arenchyma.Right thyroid size: 4.8 x 2 x 2 cmLeft thyroid size: 3.7 x 1.2 x 1.1 cmIsthmus: 5.1 mm in thicknessNodule 1:Location: Right mid lobeSize: 1.1 x 0.62 x 1.2 cmComposition: Solid or almost completely solid (2 points).Echogenicity: Very hypoechoic (3 points).Shape: Wider than tall (0 points).Margins: Smooth (0 points).Echogenic foci: Absent (0 points).Other: None.ACR TI-RADS Score: TR4 - Moderately suspicious (total 4-6 points).-- ACR recommendation: =1.5 cm FNA; =1 cm f/u in 1, 2, 3, and 5 years; <1 cm nof/u or FNA.Nodule 2:Location: Left mid lobeSize: 2.8 x 3.1 x 1.3 mmComposition: Solidor almost completely solid (2 points).Echogenicity: Hypoechoic (2 points).Shape: Wider than tall (0 p oints).Margins: Smooth (0 points).Echogenic foci: Absent (0 points).Other: None.ACR TI-RADS Score: TR4 - Moderately suspicious (total 4-6 points).-- ACR recommendation: =1.5 cm FNA; =1 cm f/u in 1, 2, 3, and 5 years; <1 cm nof/u or FNA.Nodule 3:Location: Left mid lobe, more inferior than the above n oduleSize: 3.6 x 3.9 x 2.4 millimetersComposition: Solid or almost completely solid (2 points).Echogenicity: Hypoechoic (2 points).Shape: Wider than tall (0 points).Margins: Smooth (0 points).Echogenicfoci: Absent (0 points).Other: None.ACR TI-RADS Score: TR4 - Moderately suspicious (total 4-6 points).-- ACR recommendation: =1.5 cm FNA; =1 cm f/u in 1, 2, 3, and 5 years; <1 cm nof/u or FNA.IMPRESSION:1. Nodule 1 in the right lobe does not meet the requirements for fine-needleaspiration but should be followed at one, 2, 3 and 5 years. The 2 nodules inthe left lobe can also be followed at the same time.--Read by: Román Pastor MDDictated Date/time: 07/10/18 14:45Electronically Signed by: Román Pastor MD 07/10/1914:37FINAL REPORTUT [facility] Brain w/wo contrast [id number] 12:43:00EXAM: MRI BRAIN WITH AND WITHOUT CONTRASTDATE: 06/20/2018 12:43 CDTINDICATION: - Q85.1 Tuberous sclerosisCOMPARISON: MRI of the brain from 12/02/2014TECHNIQUE: Multiplanar, mutisequence MRI of the brainwith and withoutcontrast.IV contrast: 15 mL of MultiHanceFINDINGS:Multiple nodular enhancing lesionsare seen in the impacted nipple surface ofthe lateral ventricles which vary in size from 2 to 8 mm in diameter and haveremained unchanged since 2015, consistent with subependymal nodules. One of thenodules is slightly cystic located close the foramen of Monro on the left sidemeasuring 6 mm, stable. Noevidence of increase in size of a lesion to suggesta SEGA. 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 No evidence of herniations.The intracranial arterial and venous structures demonstrate normal flow voids.The visible paranasal sinuses and skull base are unremarkable.IMPRESSION:Stigmata of tuberous sclerosis, stable.Pineal cyst.--Read by: Trav AraizaDictated Date/time: 06/21/18 08:20Electronically Signed by: Trva Aariza 06/22/1907:26FINAL REPORTUT [facility] Abdomen with and without contrast [id number] 12:43:00EXAM: MR ABDOMEN WITHOUT AND WITH CONTRASTDATE: 06/20/2018 12:43 CDTINDICATION: - Q85.1 Tuberous sclerosisADDITIONAL INFORMATION: None.COMPARISON: MR 12/02/2014.TECHNIQUE: Multiplanar, multisequence acquisition of the abdomen both prior toand following intravenous contrast.IV contrast: 15 mL MultiHanceEnteric contrast: None.FINDINGS:Lines, tubes and hardware: None.Lower thorax: Clear.Liver: 5 mm lesion with signal dropout on out of phase T1 images noted insegment 8 (series 6A, image 31) consistent with angiomyolipoma.Biliary tree: No intra- or extrahepatic biliary ductal dilation.Gallbladder: Normal. No evidence of gallstones.Pancreas: Normal.Spleen: Normal.Adrenals: Normal.Kidneys and ureters: Redemonstrated bilateral enlarged kidneys with innumerableangiomyolipomas, majority not significantly changed compared to prior study.For example the largest one in the right kidney anteriorly (series 1001, image30) measures 7.2 cm currently and 7.2 cm on the previous study.Large mass in the left lower pole has slightly increased in size, measuring 6.8x 6 cm compared to 5.7 x 5.5 cm previously (series 5,image 51). Hemorrhagewithin this lesion on the prior study has resolved. Mass in the left interpolarregion lateral aspect (5/40) measures 6.1 x 4.8 cm compared to 4.3 x 4.1 cmpreviously.Gastrointestinal tract: Normal caliber.Peritoneum, mesentery and retroperitoneum: No free air, ascites or loculatedfluid.Lymph nodes: Normal.Vasculature: Normal.Bones: Normal.Soft tissues: Normal.IMPRESSION: 1. Innumerable bilateral renal angiomyolipomas, degenerative and grosslystable compared to 2015 MR, however the larger lesions in the left kidney haveslightly increased in size.2. Tiny angiomyolipoma in the liver.Continue surveillance.--This report was dictated by a Commercial Pest Control Technician/Fellow/Physician Vac Press Operator. Ihave personallyreviewed the images as well as the interpretation and agree with the findings.Read by: Anirudh Baum MD Resident/Fellow/PhysicianAssistant: Anirudh Baum MDDictated Date/time: 9 09:16Electronically Signed by: Jeffrey Cifuentes MD 06/21/1910:35FINAL REPORTUT [facility]iciansCT Chest wo contrast [id number] 12:35:00EXAM: CT CHEST WITHOUT CONTRASTDATE: 06/20/2018 12:35 CDTINDICATION: - Q85.1 Tuberous sclerosisTECHNIQUE: Volumetric CT acquisition of the chest was obtained withoutcontrast. Axial CT images were obtained at 1.25 mm thin slices. Sagittal,coronal and axial MIP reformatted images were reconstructed and o btained at theworkstation.Total Exam DLP: 377.25 mGy-- cmCOMPARISON: Comparison is made with the prior outside chest CT dated12/02/2014. Please note that direct comparison is slightly limited since theprior study was performed at slightly thicker 2.5 mm thin slices.FINDINGS:Thyroid gland is heterogeneous containing several small hypodensities rangingin size from 2 to 7 mm. These appear new.Cardiothoracic ratio measures 12.6/27 cm. The ascending aorta and pulmonarytrunk do not measure enlarged. Residual thymic tissue noted in the anteriormediastinum.No pericardial effusion. There are no pleural effusions.For a description of findings below the diaphragm, please reference theconcomitant abdominal MRreport from the same day 06/20/2018.No enlarged mediastinal or axillary lymph nodes.Trachea and central bronchi are clear. Note is made of a tracheal bronchuswhich supplies the apical segment of the right upper lobe, an anatomic variant.There are diffuse small thin-walled pulmonary air cysts throughout the lungsbilaterally from top to bottom. These have increased in size and number [id number]. There are numerous pulmonary nodules scattered throughout all lobes ofboth lungs, some solid and some groundglass. They have increased sinceDecember 2014, ranging in size from 2 to 10 mm.There are sclerotic lesions in the bones with a posterior predilection,predominantly involving the posterior elements of the spine.IMPRESSION:1. 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 Numerous pulmonary nodules scattered throughout the lungs bilaterallyranging in size from 2 to 10 mm, some solid and some groundglass. They haveincreased in size and number since 12/02/2014. 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 Thyroid gland has become heterogeneous containing several hypodensitiesranging in size from 2 to 7 mm. Consider further evaluation with thyroidultrasound, as clinically indicated.5. Sclerotic lesions in the thoracic skeleton with a posterior predilection,predominantly involving the posterior elements of the spine. This has notsignificantly changed and is an osseous manifestation of tuberous sclerosiscomplex.--Read by: Steph Hopkins MDDictated Date/time: 06/20/18 15:50Electronically Signed by: Stehp Hopkins MD 06/21/1915:03FINAL REPORT[facility]] CBC (INCLUDES DIFF/PLT)2017-01-30 10:08:01 Test Item Value Reference Range Interpretation Comments WBC (test code = WBC) 6.2 {K/CMM} 3.7-10.4 RBC (test code = RBC) 3.31 {M/CMM} 4.20-5.40 Hgb; Below Low Threshold (test 10.1 g/dl 12.0-16.0 code = 99860-3) Hct; Below Low Threshold (test 29.4 % 36.0-48.0 code = 4544-3) MCV (test code = MCV) 88.6 fL 80.0-98.0 MCH (test code = MCH) 30.6 pg 27.0-31.0 MCHC (test code = MCHC) 34.5 g/dl 32.0-36.0 RDW (test code = RDW) 13.0 % 11.5-14.5 Platelet (test code = 777-3) 208 {K/CMM} 133-450 Mean Platelet Volume (test code 8.0 fL 7.4-10.4 = Mean Platelet Volume) [facility]] [id number] 10:08:01 Test Item Value Reference Range Interpretation Comments Segmented Neutrophils; Above High 78.2 % 45.0-75.0 Threshold (test code = 38459-8) Monocytes # (test code = 82620-2) 0.4 {K/CMM} 0.0-0.8 Lymphocytes (test code = 12.9 % 20.0-40.0 Lymphocytes) Eosinophils # (test code = 0.2 {K/CMM} 0.0-0.5 25355-2) Basophils # (test code = 06243-1) 0.0 {K/CMM} 0.0-0.2 Segs-Bands # (test code = 4.9 {K/CMM} 1.5-8.1 74677-8) Lymphocytes #; Below Low 0.8 {K/CMM} 1.0-5.5 Threshold (test code = 20015-3) [facility]] [id number] 10:08:01 Test Item Value Reference Range Interpretation Comments RPR (test code = 82104-6) Non Reactive Non Reactive [facility][H] HIV 4th Gen w/ [id number] 10:08:01 Test Item Value Reference Range Interpretation Comments HIV Ag/Ab 4th Gen (test code = HIV Negative Negative Ag/Ab 4th Gen) [facility][] STREPTOCOCCUS, GROUP B CULTURE (Genital Strep Screen) 2017-01-30 10:08:01 Test Item Value Reference Range Interpretation Comments FINAL REPORT (test No Beta-Hemolytic code = FINAL REPORT) Streptococci Isolated [facility]
--- NOTE | 2022-01-02 16:54 | ER ---
Nurse's Notes [facility] Name: Jaci Arora Age: 36 yrs Sex: Female : 1985 Arrival Date: 01/02/2022 Time: 15:55 Bed 11 Private MD: Diagnosis: Dental caries on pit and fissure surface penetrating into dentin Presentation: 01/02 16:02 Chief complaint: Patient states: she has been having left lower jaw/tooth pain that ap3 radiates into her left ear for approx 4 days now. patient states she has had fever off and on, and over the counter medications have not helped with the pain. Coronavirus screen: At this time, the client does not indicate any symptoms associated with coronavirus-19. Ebola Screen: No symptoms or risks identified at this time. Initial Sepsis Screen: Does the patient meet any 2 criteria? No. Patient's initial sepsis screen is negative. Does the patient have a suspected source of infection? No. Patient's initial sepsis screen is negative. Risk Assessment: Do you want to hurt yourself or someone else? Patient reports no desire to harm self or others. Onset of symptoms was December 29, 2021. 16:02 Method Of Arrival: Ambulatory ap3 16:02 Acuity: YAIR 4 ap3 Triage Assessment: 16:05 General: Appears in no apparent distress. Behavior is calm, cooperative. Pain: ap3 Complains of pain in left jaw Pain radiates to left ear Pain began gradually, 4 days ago. EENT: Reports pain in left ear and left jaw. Neuro: Level of Consciousness is awake, alert, obeys commands, Oriented to person, place, time, situation. Cardiovascular: Patient's skin is warm and dry. Respiratory: Airway is patent Respiratory effort is even, unlabored, Respiratory pattern is regular, symmetrical. 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 - Social history:: Smoking status: Patient denies any tobacco usage or history of. Screenin:06 Abuse screen: Denies threats or abuse. Nutritional screening: No deficits noted. ap3 Tuberculosis screening: No symptoms or risk factors identified. Fall Risk None identified. Vital Signs: 16:02 BP 132 / 87; Pulse 77; Resp 17; Temp 99.2; Pulse Ox 100% ; Weight 68.04 kg; Height 5 ap3 ft. 2 in. (157.48 cm); Pain 0/10; 16:02 Body Mass Index 27.44 (68.04 kg, 157.48 cm) ap3 ED Course: 15:55 Patient arrived in ED. rg4 15:56 Kelly Jean FNP-C is [facility]. snw 15:56 Ramy Ramirez MD is Attending Physician. snw 16:04 Triage completed. ap3 16:06 Arm band placed on right wrist. ap3 17:09 Rosana Bojorquez RN is Primary Nurse. ss 17:09 No provider procedures requiring assistance completed. Patient did not have IV access ss during this emergency room visit. 17:26 Patient has correct armband on for positive identification. ap3 Administered Medications: 17:13 Drug: Clindamycin 300 mg Route: PO; ap3 17:13 Follow up: Response: No adverse reaction ap3 17:13 Drug: [place] (HYDROcodone-acetaminophen) 5 mg-325 mg 1 tabs Route: PO; ap3 17:13 Drug: Motrin (ibuprofen) 600 mg Route: PO; ap3 Medication: 16:06 VIS not applicable for this client. ap3 Outcome: 16:53 Discharge ordered by . snw 17:26 Discharged to home ambulatory. ap3 17:26 Condition: good 17:26 Discharge instructions given to patient, Instructed on discharge instructions, follow up and referral plans. medication usage, Demonstrated understanding of instructions, follow-up care, medications, Prescriptions given X 2. 17:27 Patient left the ED. ap3 Signatures: Kelly Jean FNP-C DOCUMENTATION SPEC-Csnw Rosana Bojorquez, DOREEN RN Karli Virgen rg4 Elma Stewart RN RN ap3
--- NOTE | 2022-01-02 16:54 | EDPHYS ---
Physician Documentation [facility] Name: Jaci Arora Age: 36 yrs Sex: Female : 1985 Arrival Date: 01/02/2022 Time: 15:55 Bed 11 Private MD: ED Physician Ramy Ramirez HPI: 01/02 16:57 This 36 yrs old Female presents to ER via Ambulatory with complaints of Ear Pain, snw Toothache. 16:57 The patient presents with pain, that is acute. The complaints affect the right jaw and snw left jaw. Onset: The symptoms/episode began/occurred suddenly, 4 day(s) ago, and became worse and became persistent. Modifying factors: The symptoms are alleviated by nothing, the symptoms are aggravated by nothing. Severity of symptoms: At their worst the symptoms were moderate. It is unknown whether or not the patient has had similar symptoms in the past. The patient has not recently seen a physician. 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 - Social history:: Smoking status: Patient denies any tobacco usage or history of. ROS: 16:56 Constitutional: Negative for fever, chills, and weight loss, Eyes: Negative for injury, snw pain, redness, and discharge, Neck: Negative for injury, pain, and swelling, Cardiovascular: Negative for chest pain, palpitations, and edema, Respiratory: Negative for shortness of breath, cough, wheezing, and pleuritic chest pain, Abdomen/GI: Negative for abdominal pain, nausea, vomiting, diarrhea, and constipation, Back: Negative for injury and pain, : Negative for injury, bleeding, discharge, and swelling, MS/Extremity: Negative for injury and deformity, Skin: Negative for injury, rash, and discoloration, Neuro: Negative for headache, weakness, numbness, tingling, and seizure, Psych: Negative for depression, anxiety, suicide ideation, homicidal ideation, and hallucinations. 16:56 ENT: Positive for dental pain, ear pain. Exam: 16:56 Constitutional: This is a well developed, well nourished patient who is awake, alert, snw and in no acute distress. Head/Face: Normocephalic, atraumatic. Eyes: Pupils equal round and reactive to light, extra-ocular motions intact. Lids and lashes normal. Conjunctiva and sclera are non-icteric and not injected. Cornea within normal limits. Periorbital areas with no swelling, redness, or edema. Neck: Trachea midline, no thyromegaly or masses palpated, and no cervical lymphadenopathy. Supple, full range of motion without nuchal rigidity, or vertebral point tenderness. No Meningismus. Chest/axilla: Normal chest wall appearance and motion. Nontender with no deformity. No lesions are appreciated. Cardiovascular: Regular rate and rhythm with a normal S1 and S2. No gallops, murmurs, or rubs. Normal PMI, no JVD. No pulse deficits. Respiratory: Lungs have equal breath sounds bilaterally, clear to auscultation and percussion. No rales, rhonchi or wheezes noted. No increased work of breathing, no retractions or nasal flaring. Abdomen/GI: Soft, non-tender, with normal bowel sounds. No distension or tympany. No guarding or rebound. No evidence of tenderness throughout. Back: No spinal tenderness. No costovertebral tenderness. Full range of motion. Skin: Warm, dry with normal turgor. Normal color with no rashes, no lesions, and no evidence of cellulitis. MS/ Extremity: Pulses equal, no cyanosis. Neurovascular intact. Full, normal range of motion. Neuro: Awake and alert, GCS 15, oriented to person, place, time, and situation. Cranial nerves II-XII grossly intact. Motor strength 5/5 in all extremities. Sensory grossly intact. Cerebellar exam normal. Normal gait. 16:56 ENT: Nose: is normal, Posterior pharynx: is normal, Dental exam: dental caries, that is severe, specifically in the upper right second molar (#2), upper left second molar (#15), lower left third molar (#17), lower left second molar (#18), lower left first molar (#19), lower right second bicuspid (#29), lower right first molar (#30) and lower right second molar (#31). Vital Signs: 16:02 BP 132 / 87; Pulse 77; Resp 17; Temp 99.2; Pulse Ox 100% ; Weight 68.04 kg; Height 5 ap3 ft. 2 in. (157.48 cm); Pain 0/10; 16:02 Body Mass Index 27.44 (68.04 kg, 157.48 cm) ap3 MDM: 16:40 Patient medically screened. snw 16:58 Data reviewed: vital signs, nurses notes. Data interpreted: Pulse oximetry: on room air snw is 100 %. Interpretation: normal. Counseling: I had a detailed discussion with the patient and/or guardian regarding: the historical points, exam findings, and any diagnostic results supporting the discharge/admit diagnosis, the need for outpatient follow up, to return to the emergency department if symptoms worsen or persist or if there are any questions or concerns that arise at home. Special discussion: Based on the history and exam findings, there is no indication for further emergent testing or inpatient evaluation. I discussed with the patient/guardian the need to see a dentist for further evaluation of the symptoms. 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 I agree with assessment [id number] and care plan and confirm the diagnosis (es) above. Attestation: The patient's history, exam findings, diagnostics, and a summary of any interventions or procedures was reviewed in detail with Kelly MCDANIEL. Disposition Summary: 01/02/22 16:53 Discharge Ordered Location: Home snw Condition: Stable snw Diagnosis - Dental caries on pit and fissure surface penetrating into dentin snw Followup: snw - With: Emergency Department - When: As needed - Reason: Worsening of condition Followup: snw - With: Private Physician - When: 2 - 3 days - Reason: Recheck today's complaints, Continuance of care, Re-evaluation by your physician Discharge Instructions: - Discharge Summary Sheet snw - Dental Caries, Adult snw - Dental Pain snw - Diet and Dental Disease snw - Dental Extraction, Care After, [id number] snw Forms: - Medication Reconciliation Form snw - Thank You Letter snw - Antibiotic Education snw - Prescription Opioid Use snw Prescriptions: - Clindamycin HCl 150 mg Oral Capsule - take 2 capsule by ORAL route every 8 hours for 10 days; 60 capsule; Refills: 0, snw Product Selection Permitted - Tylenol-Codeine #3 300 mg-30 mg Oral - take 1 tablet by ORAL route 3 times per day; 12 tablet; Refills: 0, Product snw Selection Permitted Signatures: Kelly Jean, MINE ENGINEERING SUPERINTENDENT-C MINE ENGINEERING SUPERINTENDENT-Csnw Elma Stewart RN RN ap3 Ramy Ramirez MD MD [id number]
[2022-01-02] MEDS ORDERED: IBUPROFEN 200 MG TAB PO ONE (17:09)
[2022-01-02] MEDS ORDERED: HYDROCODONE/APAP 5/325 MG TAB ONE (17:10)
[2022-01-02 17:58] VITALS: BP 132/87; TEMP 99.2; O2SAT 100
== END 2022-01-02 17:27 | disposition home or self-care (01) ==
LOC: ER 15:51
DX: K02.9 Dental caries, unspecified (principal); Z88.0 Allergy status to penicillin
CPT/HCPCS: 99283

== ENCOUNTER 2022-03-28 12:17 | Emergency (ER) | payer OTHER ==
--- OUTSIDE RECORDS SUMMARY | 2022-03-28 12:23 | XMS REPORT | Continuity of Care Document ---
:1985 Author Organization [facility] t Address [address] [place] [address] [address]. [address] [place] [address] Care Team Providers Name Role Phone Isaak Worley Primary Care Physician Tia Cardenas Attending Clinician Unavailable STELLA LUQUE Attending Clinician Unavailable SHIVA MILLAN Attending Clinician Unavailable RAFAEL TODD Attending Clinician Unavailable ALLY MILLER Attending Clinician Unavailable TAMMY Attending Clinician Unavailable Pallavi Felix RN Attending Clinician Unavailable Sarah Herring MA Attending Clinician Unavailable Erendira Ibarra LCSW Attending Clinician Unavailable STELLA LUQUE Attending Clinician Unavailable SHIVA MILLAN Attending Clinician Unavailable MATEO MADERA M.D. Attending Clinician Unavailable STELLA LUQUE M.D. Attending Clinician Unavailable JOVI SULTANA M.D. Attending Clinician Unavailable ALLY MILLER M.D. Attending Clinician UnavailSHIVA Garibay M.D. Attending Clinician Unavailable REBEL ROTH M.D. Attending Clinician Unavailable SINDHU KILPATRICK M.D. Attending Clinician Unavailable OB/MD, POSPROVIDER Attending Clinician Unavailable OB/MD, Attending Clinician Unavailable FANNINEKG, WALK-INS Attending Clinician Unavailable OB/RES, US Attending Clinician Unavailable OB/RES, ULTRASOUND Attending Clinician Unavailable SYMONE MCKAY M.D. Attending Clinician Unavailable PANFILO MORA M.D. Attending Clinician Unavailable STELLA LUQUE M.D. 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 [place] [id number] Periapical Problem Co mmon abscess [facility] without [facility] sinus [facility] [id number] Pseudoseiz Problem Co mmon ures [facility] [id number] Dental Problem Common caries [facility] [id number] Dental Problem Common infection [facility] [id number] Closed Problem Common nondisplac [facility] bimalleola [facility] [place] initial encounter [id number] 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 [facility] Seizure Seizure Problem Common [facility] [id number] Hypoglycem Problem Co mmon ia [facility] History of History of Problem Resolve UT [...] ins to drug Physici (finding ans ) 0 Drug Active RASH Common allergy [facility] Family History Family Member Diagnosis Comments Start Date Stop Date Source natural daughter Family history of [facility] tuberous sclerosis Social History Social Habit Start Date Stop Date Quantity Comments Source History of Tobacco [facility] Exposure to Not sure [facility] SARS-CoV-2 (event) Sex Ass[birth year] [facility] 00:00:00 00:00:00 [facility] Smoking Status Start Date Stop Date Source Tobacco smoking consumption [facility] Smokes tobacco daily (finding) [facility] Never Smoker [facility] Medications Ordered Filled Start Stop Current Ordering Indication Dosage Frequency Signature Comments Components Source Medication Medication Date Date Medication? Clinician (SIG) Name Name Depo-Staple Shear Operator Depo-Staple Shear Operator 2021-04 No 150ug Common a a 0-14 Spirit (Medroxypro (Medroxypro 00:00: - [facility] gesterone gesterone ) ) [facility] Depo-Staple Shear Operator Depo-Staple Shear Operator 2021-04 No 150ug Common a a 0-14 Spirit (Medroxypro (Medroxypro 00:00: - [facility] gesterone gesterone ) ) [facility] Depo-Staple Shear Operator Depo-Staple Shear Operator 2021-04 No 150ug Common a a 0-14 Spirit (Medroxypro (Medroxypro 00:00: - [facility] gesterone gesterone ac) ac) [facility] Depo-Staple Shear Operator Depo-Staple Shear Operator 2021-04 No 150ug Common a a 0-14 Spirit (Medroxypro (Medroxypro 00:00: - [facility] gesterone gesterone ac) ac) [facility] Depo-Staple Shear Operator Depo-Staple Shear Operator No 150ug Common a a 7-21 Spirit (Medroxypro (Medroxypro 00:00: - [facility] gesterone gesterone ac) ac) [facility] Depo-Staple Shear Operator Depo-Staple Shear Operator No 150ug Common a a 7-21 Spirit (Medroxypro (Medroxypro 00:00: - [facility] gesterone gesterone ac) ac) [facility] Depo-Staple Shear Operator Depo-Staple Shear Operator No 150ug Common a a 7-21 Spirit (Medroxypro (Medroxypro 00:00: - [facility] gesterone gesterone ac) ac) [facility] Depo-Staple Shear Operator Depo-Staple Shear Operator No 150ug Common a a 7-21 Spirit (Medroxypro (Medroxypro 00:00: - [facility] gesterone gesterone ac) ac) [facility] Depo-Staple Shear Operator Depo-Staple Shear Operator No 150ug Common a a 7-21 Spirit (Medroxypro (Medroxypro 00:00: - [facility] gesterone gesterone ac) ac) [facility] Depo-Staple Shear Operator Depo-Staple Shear Operator No 150mg Common a a 4-21 Spirit (Medroxypro (Medroxypro 00:00: - [facility] gesterone gesterone ac) ac) [facility] Depo-Staple Shear Operator Depo-Staple Shear Operator No 150mg Common a a 4-21 Spirit (Medroxypro (Medroxypro 00:00: - [facility] gesterone gesterone ac) ac) [facility] Depo-Staple Shear Operator Depo-Staple Shear Operator No 150mg Common a a 4-21 Spirit (Medroxypro (Medroxypro 00:00: - [facility] gesterone gesterone St ) ) [facility] Depo-Staple Shear Operator Depo-Staple Shear Operator No 150mg Common a a 4-21 Spirit (Medroxypro (Medroxypro 00:00: - [facility] gesterone gesterone St ) ) [facility] Depo-Staple Shear Operator Depo-Staple Shear Operator No 150mg Common a a 4-21 Spirit (Medroxypro (Medroxypro 00:00: - [facility] gesterone gesterone St ) ) [facility] Depo-Staple Shear Operator Depo-Staple Shear Operator No 150mg Common a a 4-21 Spirit (Medroxypro (Medroxypro 00:00: - [facility] gesterone gesterone ) ) [facility] everolimus 2020-04 Yes [id number] TAKE 1 U T (Afinitor) 2-13 TABLET (5 Heal th 5 MG tablet 00:00: MG TOTAL) 00 BY MOUTH 1 (ONE) TIME EACH DAY. SWALLOW WHOle with a glass of water. Do not take any tablet that is broken or cr everolimus 2020-04 Yes [id number] TAKE 1 U T (Afinitor) 2-13 TABLET (5 Heal th 5 MG tablet 00:00: MG TOTAL) 00 BY MOUTH 1 (ONE) TIME EACH DAY. SWALLOW WHOle with a glass of water. Do not take any tablet that is broken or cr everolimus 2020-04 Yes [id number] TAKE 1 U T (Afinitor) 2-13 TABLET (5 Heal th 5 MG tablet 00:00: MG TOTAL) 00 BY MOUTH 1 (ONE) TIME EACH DAY. SWALLOW WHOle with a glass of water. Do not take any tablet that is broken or cr everolimus 2020-04 Yes [id number] TAKE 1 U T (Afinitor) 2-13 TABLET (5 Heal th 5 MG tablet 00:00: MG TOTAL) 00 BY MOUTH 1 (ONE) TIME EACH DAY. SWALLOW WHOle with a glass of water. Do not take any tablet that is broken or cr everolimus 2020-04 Yes [id number] TAKE 1 U T (Afinitor) 2-13 TABLET (5 Heal th 5 MG tablet 00:00: MG TOTAL) 00 BY MOUTH 1 (ONE) TIME EACH DAY. SWALLOW WHOle with a glass of water. Do not take any tablet that is broken or cr everolimus 2020-04 Yes [id number] TAKE 1 U T (Afinitor) 2-13 TABLET [...] is broken or cr everolimus 2020-04 Yes [id number] TAKE 1 U T (Afinitor) 2-13 TABLET (5 Heal th 5 MG tablet 00:00: MG TOTAL) 00 BY MOUTH 1 (ONE) TIME EACH DAY. SWALLOW WHOle with a glass of water. Do not take any tablet that is broken or cr everolimus 2020-04 Yes [id number] TAKE 1 U T (Afinitor) 2-13 TABLET (5 Heal th 5 MG tablet 00:00: MG TOTAL) 00 BY MOUTH 1 (ONE) TIME EACH DAY. SWALLOW WHOle with a glass of water. Do not take any tablet that is broken or cr everolimus 2020-04 Yes [id number] TAKE 1 U T (Afinitor) 2-13 TABLET (5 Heal th 5 MG tablet 00:00: MG TOTAL) 00 BY MOUTH 1 (ONE) TIME EACH DAY. SWALLOW WHOle with a glass of water. Do not take any tablet that is broken or cr everolimus 2020-04 Yes [id number] TAKE 1 U T (Afinitor) 2-13 TABLET (5 Heal th 5 MG tablet 00:00: MG TOTAL) 00 BY MOUTH 1 (ONE) TIME EACH DAY. SWALLOW WHOle with a glass of water. Do not take any tablet that is broken or cr Blood Blood 2018- Yes ALLY USE UT Glucose Glucose 6-14 CLINT- DIRECTED. Physici Monitor Monitor 00:00: [employer] System System 00 M.D. w/Device w/Device Kit Kit Afinitor 5 Afinitor 5 Yes SHIVA 1 QD TAKE 1 UT MG Oral MG Oral 09-03 MILLAN TABLET Phys ici Tablet Tablet 00:00: M.D. [...] a ns Strip Strip 00 M.D. Yes [employer] SUPERVISOR UT 28-0.8 MG 28-0.8 MG 10-04 Physi ci Oral Tablet Oral Tablet 00:00: ans 00 Afinitor 5 Afinitor 5 No 1{table QD Afinitor 5 MG MG t} MG Depo-Staple Shear Operator Depo-Staple Shear Operator No 1{ml} Depo-Prove a 150 MG/ML a 150 MG/ML ra 150 MG/ML Afinitor 5 Afinitor 5 No 1{table QD Afinitor 5 MG MG t} MG Depo-Staple Shear Operator Depo-Staple Shear Operator No 1{ml} Depo-Prove a 150 MG/ML a 150 MG/ML ra 150 MG/ML Depo-Staple Shear Operator Depo-Staple Shear Operator No 1{ml} Depo-Prove a 150 MG/ML a 150 MG/ML ra 150 MG/ML Afinitor 5 Afinitor 5 No 1{table QD Afinitor 5 MG MG t} MG Escitalopra Escitalopra No 1{table QD Escitalopr m Oxalate 5 m Oxalate 5 t} am Oxalate MG MG 5 MG Depo-Staple Shear Operator Depo-Staple Shear Operator No 1{ml} Depo-Prove a 150 MG/ML a 150 MG/ML ra 150 MG/ML Afinitor 5 Afinitor 5 No 1{table QD Afinitor 5 MG MG t} MG Escitalopra Escitalopra No 1{table QD Escitalopr m Oxalate 5 m Oxalate 5 t} am Oxalate MG MG 5 MG Depo-Staple Shear Operator Depo-Staple Shear Operator No 1{ml} Depo-Prove a 150 MG/ML a 150 MG/ML ra 150 MG/ML Afinitor 5 Afinitor 5 No 1{table QD Afinitor 5 MG MG t} MG Escitalopra Escitalopra No 1{table QD Escitalopr m Oxalate 5 m Oxalate 5 t} am Oxalate MG MG 5 MG Depo-Staple Shear Operator Depo-Staple Shear Operator No 1{ml} Depo-Prove a 150 MG/ML a 150 MG/ML ra 150 MG/ML Afinitor 5 Afinitor 5 No 1{table QD Afinitor 5 MG MG t} MG Escitalopra Escitalopra No 1{table QD Escitalopr m Oxalate 5 m Oxalate 5 t} am Oxalate MG MG 5 MG Depo-Staple Shear Operator Depo-Staple Shear Operator No 1{ml} Depo-Prove a 150 MG/ML a 150 MG/ML ra 150 MG/ML Afinitor 5 Afinitor 5 No 1{table QD Afinitor 5 MG MG t} MG Depo-Staple Shear Operator Depo-Staple Shear Operator No 1{ml} Depo-Prove a 150 MG/ML a 150 MG/ML ra 150 MG/ML Afinitor 5 Afinitor 5 No 1{table QD Afinitor 5 MG MG t} MG Immunizations Ordered Immunization Filled Immunization Date Status Commen ts Source Name Name Tdap 2017-01-[address] [facility] 00:00:00 Vital Signs Vital Name Observation Time Observation Value Comments Source height 2022-01-13 62.00 [in_i] [facility] 13:40:00 [facility] weight 2022-01-13 140 [lb_av] [facility] - 13:40:00 [facility] temperature 2022-01-13 98.0 [degF] [facility] - 13:40:00 [facility] bmi 2022-01-13 25.6 kg/m2 [facility] - 13:40:00 [facility] oximetry 2022-01-13 99 % [facility] - 13:40:00 [facility] respiratory rate 2022-01-13 18 /min [facility] - 13:40:00 [facility] blood pressure 2022-01-13 110 mm[Hg] [facility] - systolic 13:40:00 [facility] blood pressure 2022-01-13 61 mm[Hg] [facility] - diastolic 13:40:00 [facility] blood pressure 2021-10-20 105 mm[Hg] [facility] - systolic 10:20:00 [facility] blood pressure 2021-10-20 72 mm[Hg] [facility] - diastolic 10:20:00 [facility] height 2021-10-20 62.00 [in_i] [facility] - 10:20:00 [facility] weight 2021-10-20 140.8 [lb_av] [facility] - 10:20:00 [facility] temperature 2021-10-20 98.1 [degF] [facility] - 10:20:00 [facility] bmi 2021-10-20 25.75 kg/m2 [facility] - 10:20:00 [facility] oximetry 2021-10-20 99 % [facility] - 10:20:00 [facility] respiratory rate 2021-10-20 16 /min [facility] - 10:20:00 [facility] height 2021-07-21 62.00 [in_i] [facility] - 10:20:00 [facility] weight 2021-07-21 136.6 [lb_av] [facility] - 10:20:00 [facility] temperature 2021-07-21 97.9 [degF] [facility] - 10:20:00 [facility] bmi 2021-07-21 24.98 kg/m2 [facility] - 10:20:00 [facility] oximetry 2021-07-21 99 % [facility] - 10:20:00 [facility] respiratory rate 2021-07-21 16 /min [facility] it - 10:20:00 [facility] blood pressure 2021-07-21 117 mm[Hg] [facility] - systolic 10:20:00 [facility] blood pressure 2021-07-21 76 mm[Hg] [facility] - diastolic 10:20:00 [facility] height 2021-05-19 62.00 [in_i] [facility] - 11:00:00 [facility] weight 2021-05-19 137 [lb_av] [facility] - 11:00:00 [facility] temperature 2021-05-19 97.9 [degF] [facility] - 11:00:00 [facility] bmi 2021-05-19 25.05 kg/m2 [facility] - 11:00:00 [facility] oximetry 2021-05-19 100 % [facility] - 11:00:00 [facility] respiratory rate 2021-05-19 16 /min [facility] it - 11:00:00 [facility] blood pressure 2021-05-19 116 mm[Hg] [facility] - systolic 11:00:00 [facility] blood pressure 2021-05-19 59 mm[Hg] Common [facility] - diastolic 11:00:00 [facility] BP Systolic 2018-09-02 117 mm[Hg] [facility] [...] BP Systolic 2017 110 mm[Hg] Location: RUE; [facility] 13:09:00 Position: Sitting BP Diastolic 2017 69 mm[Hg] Location: R[facility]; [facility] 13:09:00 Position: Sitting Height 2017 62 [in_us] [facility] 13:09:00 Weight 2017 148.5 [lb_av] [facility] 13:09:00 Body Mass Index 2017 27.16 kg/m2 [facility] Calculated 13:09:00 BP Systolic 2017-02-06 115 mm[Hg] Location: R[facility]; [facility] 09:49:00 Position: Sitting BP Diastolic 2017-02-06 65 mm[Hg] Location: R[facility]; [facility] 09:49:00 Position: Sitting Height 2017-02-06 62 [in_us] [facility] 09:49:00 Weight 2017-02-06 173 [lb_av] [facility] 09:49:00 Body Mass Index 2017-02-06 31.64 kg/m2 [facility] Calculated 09:49:00 Temperature 2017-02-06 98.1 [degF] Method: Oral [facility] 09:49:00 Heart Rate 2017-02-06 71 /min [facility] 09:49:00 BP Systolic 2017-01-30 128 mm[Hg] Location: [facility]; [facility] 09:24:00 Position: Sitting BP Diastolic 2017-01-30 77 mm[Hg] Location: [facility]; [facility] 09:24:00 Position: Sitting Height 2017-01-30 62 [...] and without 2020-04-26 00:00:00 [facility] contrast [id number] [QL] CBC (INCLUDES DIFF/PLT) 2019-10-15 00:00:00 [facility] [...] and without 2019-09-05 00:00:00 [facility] contrast [id number] EEG 2018-09-03 00:00:00 [facility] US Thyroid 82860 2018-09-03 00:00:00 [facility] [QLH] CMP [...] 2018-09-02 00:00:00 [facility] ANTIBODIES US Thyroid 40602 2018-07-05 00:00:00 [facility] [Q] HCG, TOTAL, QL 2018-06-06 00:00:00 [facility] MRI Brain w/wo contrast 2018-05-23 00:00:00 [facility] 04418 MRI Abdomen with and without 2018-05-23 00:00:[address] [facility] [address] Chest wo contrast [id number] 2018-05-23 00:00:00 [facility] MRI Abdomen with and without 2017-10-10 00:00:00 [facility] contrast [id number] MRI Brain w/wo contrast 2017-10-10 00:00:[address] [facility] [address] [facility] Chest w/wo contrast 75678 2017-10-10 00:00:00 [facility] EKG w/Rhythm Strip [...] [QL] MAGNESIUM] Diagnostic Test 2019-01-31 US Thyroid 48627 [facility] Pending 00:00:00 [code = 48031] Future Scheduled MRI Abdomen with After [id number] [facility] Test and without contrast 35432 [code = 34519] Future Scheduled MRI Brain w/wo After [id number] [facility] Test contrast 35509 [code = 22536] Future Scheduled CT Chest w/wo After [id number] [facility] Test contrast 34630 [code = 66519] Future Scheduled MRI Abdomen with After 10Oct2017 [facility] Test and without contrast 05117 [code = 68212] Future Scheduled MRI Brain w/wo After [id number] [facility] Test contrast 14953 [code = 83536] Future Scheduled CT Chest w/wo After [id number] [facility] Test contrast 81173 [code = 91050] Future Scheduled [Q] HCG, TOTAL, QL After 06Jun2018 [facility] Test [code = [Q] HCG, TOTAL, QL] Future Scheduled [Q] HCG, TOTAL, QL After 06Jun2018 [facility] Test [code = [Q] HCG, TOTAL, QL] Future Scheduled US Thyroid 69052 After 05Jul2018 [facility] Test [code = 75927] Future Scheduled US Thyroid 97666 After 05Jul2018 [facility] Test [code = 92377] Future Scheduled [QLH] CMP W/EGFR Approx [id number] [facility] Test [code = [QLH] CMP W/EGFR] Future Scheduled [QLH] CBC Approx [id number] [facility] Test (INCLUDES DIFF/PLT) [code = [QLH] CBC (INCLUDES DIFF/PLT)] Future Scheduled [Q] EVEROLIMUS, Approx [id number] [facility] Test BLOOD [code = [Q] EVEROLIMUS, BLOOD] Future Scheduled [QLH] LIPID PANEL Approx [id number] [facility] Test [code = [QLH] LIPID PANEL] Future Scheduled [QLH] PTH, INTACT Approx [id number] [facility] Test (WITHOUT CALCIUM) [code = [QLH] PTH, INTACT (WITHOUT CALCIUM)] Future Scheduled [QLH] PHOSPHATE Approx [id number] [facility] Test ( PHOSPHORUS) [code = [QLH] PHOSPHATE ( PHOSPHORUS)] Future Scheduled [QLH] CMP W/EGFR Approx [id number] [facility] Test [code = [QLH] CMP W/EGFR] Future Scheduled [QLH] CBC Approx [id number] [facility] Test (INCLUDES DIFF/PLT) [code = [QLH] CBC (INCLUDES DIFF/PLT)] Future Scheduled [Q] EVEROLIMUS, Approx [id number] [facility] Test BLOOD [code = [Q] EVEROLIMUS, BLOOD] Future Scheduled [QLH] LIPID PANEL Approx [id number] [facility] Test [code = [QLH] LIPID PANEL] Future Scheduled [QLH] PTH, INTACT Approx 14Oct2018 [facility] Test (WITHOUT CALCIUM) [code = [QLH] PTH, INTACT (WITHOUT CALCIUM)] Future Scheduled [QLH] PHOSPHATE Approx [id number] [facility] Test ( PHOSPHORUS) [code = [QLH] PHOSPHATE ( PHOSPHORUS)] Encounters Start End Encounter Admission Attending Care Care Encounter Source Date/Time Date/Time Type Type Clinicians Facility Department ID 2022-03-18 Outpatient HARIKA Cardenas [facility] [id number] Common 13:11:00 Tai [address] [facility] 2022-02-03 Outpatient [facility] [id number] CT 09:30:[address] [place] [address] 2022-01-31 Outpatient [facility] [id number] [place] 13:00:[address] [place] [address] 2021-05-17 Outpatient SEBASTIAN CardenasLC STLC [id number] Common 09:12:01 Tia [facility] 2021-04-27 Outpatient Theresa STMALACHILC STLC [id number] Common 14:34:17 Tia [facility] 2021-04-27 Outpatient SEBASTIAN CardenasLC STLC [id number] Common 13:20:36 Tia [facility] 2021-04-27 Outpatient Theresa STMALACHILC STLC [id number] Common 13:14:17 Tia [address] [facility] 2021-03-22 Outpatient REBEL, [facility] [id number] UT 10:35:23 [facility] 2021-02-28 [facility] [id number] [place] 10:29:05 [facility] 2021-02-18 Outpatient LUIS, [facility] [id number] [place] 08:09:15 [facility] 2021-02-15 Outpatient REBEL, [facility] [id number] CT 16:29:03 [facility] 2020-11-25 Outpatient REBEL, [facility] [id number] CT 15:35:48 [facility] 2022-08-02 2022-08-02 Outpatient PEYTON, [facility] [id number] [place] 15:00:00 15:00:00 [facility] 2022-02-06 2022-02-06 Outpatient [facility] [id number] UT 11:30:00 15:04:58 URPedro [facility] 2022-01-13 2022-01-13 OFFICE STLMLC STLMLC [id number] Co mmon 00:00:00 00:00:00 VISIT EST Spir it PT LEVEL 3 - [facility] 2022-01-12 2022-01-12 (TEL) STLMLC STLMLC [id number] Co mmon 00:00:00 00:00:00 [facility] - [facility] 2022-01-02 2022-01-02 Outpatient [facility]INT-B [facility] [id number] UT 11:00:00 11:00:00 Pedro FRENCH 2021-10-20 2021-10-20 OFFICE STLMLC STLMLC [id number] Co mmon 00:00:00 00:00:00 VISIT Spirit ESTAB PT - CHI LEVEL 2 [facility] 2021-10-11 2021-10-11 Outpatient [facility] [address] 02:29:00 02:29:00 HN [id number] da [facility] 2021-09-05 2021-09-05 Outpatient CLINT-B [facility] [id number] UT 11:00:00 11:00:00 Pedro FRENCH 2021-09-05 2021-09-05 Telephone Pallavi Felix [id number] 00:00:00 00:00:00 Pallavi Felix [id number] [facility] 9.2.7.2.686 [id number] 2021-09-02 2021-09-02 Telephone Pallavi Felix UTP 6410 1.2.84 0.114 [id number] UT 00:00:00 00:00:[address] [id number] Health 9.2.7.2.686 [id number] 2021-08-23 2021-08-23 Telephone Pallavi Felix UTP 6410 1.2.84 0.114 [id number] [place] 00:00:00 00:00:[address] [id number] Health 9.2.7.2.686 [id number] 2021-07-21 2021-07-21 OFFICE [facility] [id number] Co mmon 00:00:00 00:00:00 VISIT [facility] PT - CHI LEVEL 2 [facility] 2021-07-19 2021-07-19 Telemedici Rebel NICCI 6410 1.2.840.114 [id number] UT 08:45:00 09:54:[address] [id number] Health 9.2.7.2.686 [id number] 2021-07-18 2021-07-18 Telephone Sarah Herring UTP 6410 1.2.840.11 [id number] [place] 00:00:00 00:00:[address] [id number] Health 9.2.7.2.686 [id number] 2021-07-12 2021-07-12 Telephone Pallavi Felix UTP 6410 1.2.84 0.114 [id number] UT 00:00:00 00:00:[address] [id number] Health 9.2.7.2.686 [id number] 2021-07-01 2021-07-01 Telephone Pallavi Felix UTP 6410 1.2.84 0.114 [id number] UT 00:00:00 00:00:[address] [id number] Health 9.2.7.2.686 [id number] 2021-06-07 2021-06-07 Telephone Pallavi Felix UTP 6410 1.2.84 0.114 [id number] UT 00:00:00 00:00:[address] [id number] Health 9.2.7.2.686 [id number] 2021-05-26 2021-05-26 Telephone Pallavi Felix UTP 6410 1.2.84 0.114 [id number] UT 00:00:00 00:00:[address] [id number] Health 9.2.7.2.686 [id number] 2021-05-26 2021-05-26 (TEL) STLMLC STLMLC [id number] Co mmon 00:00:00 00:00:00 Spirit [facility] 2021-05-19 2021-05-19 OFFICE STLMLC STLMLC [id number] Co mmon 00:00:00 00:00:00 VISIT [facility] PT LEVEL 3 [facility] 2021-04-27 2021-04-27 Telephone Pallavi Felix UTP 6410 1.2.84 0.114 [id number] UT 00:00:00 00:00:[address] [id number] Health 9.2.7.2.686 [id number] 2021-04-21 2021-04-21 Telephone Pallavi Felix 6410 1.2.84 0.114 [id number] [place] 00:00:00 00:00:[address] [id number] Health 9.2.7.2.686 [id number] 2021-04-19 2021-04-19 Telemedicjesus NICCI Millan 6410 1.2.840.114 [id number] UT 10:20:00 10:36:[address] 350.1.13.58 Health 9.2.7.2.686 [id number] 2021-04-15 2021-04-15 Telephone Sarah Herring UTP [id number] 00:00:00 00:00:[address] [id number] Health 9.2.7.2.686 [id number] 4 2021-04-07 2021-04-07 Telephone Pallavi Felix UTP 6410 1.2.84 0.114 [id number] UT 00:00:00 00:00:[address] 350.1.13.58 Health 9.2.7.2.686 [id number] 2021-04-06 2021-04-06 Telephone Pallavi Felix UTP 6410 1.2.84 0.114 [id number] UT 00:00:00 00:00:[address] 350.1.13.58 Health 9.2.7.2.686 [id number] 2021-04-06 2021-04-06 Patient Erendira Ibarra UTP 6410 1.2.840. 114 [id number] [place] 00:00:00 00:00:[address] 350.1.13.5 8 Health 9.2.7.2.686 [id number] 2021-04-04 2021-04-04 Telephone Pallavi Felix UTP 6410 1.2.84 0.114 [id number] UT 00:00:00 00:00:[address] 350.1.13.58 Health 9.2.7.2.686 [id number] 2021-03-24 2021-03-24 Telephone Pallavi Felix UTP 6410 1.2.84 0.114 [id number] UT 00:00:00 00:00:[address] 350.1.13.58 Health 9.2.7.2.686 [id number] 2021-03-16 2021-03-16 Telephone Pallavi Felix UTP 6410 1.2.84 0.114 [id number] [place] 00:00:00 00:00:[address] 350.1.13.58 Health 9.2.7.2.686 [id number] 4 2021-03-11 2021-03-11 Jasvir Millan UTP 6410 1.2.457.603 [id number] [place] 00:00:00 00:00:[address] 350.1.13.58 Health 9.2.7.2.686 [id number] 4 2021-02-15 2021-02-15 Outpatient [facility] 7503 [facility] 12:08:00 23:59:00 STELLA 2021-02-14 2021-02-14 Telephone Pallavi Felix [id number] 00:00:00 00:00:[address] 350.1.13.58 Health 9.2.7.2.686 [id number] 4 2021-02-01 2021-02-01 Telephone Pallavi Felix UTP [id number] 00:00:00 00:00:[address] 350.1.13.58 Health 9.2.7.2.686 [id number] 4 2021-02-01 2021-02-01 EXT [facility] Rebel, EXT MSRDP 1.2.840.114 1 [id number] [place] 00:00:00 00:00:00 Stella Shaw LOCATION 350.1.13.58 Health 9.2.7.2.686 [id number] 0 2021-02-01 2021-02-01 EXT [facility] OP Rebel, EXT MSRDP 1.2.840.114 1 [id number] [place] 00:00:00 00:00:00 Stella Shaw LOCATION 350.1.13.58 Health 9.2.7.2.686 [id number] 0 2021-01-26 2021-01-26 Orders Pallavi Felix UTP 6410 1.2.840. 114 [id number] [place] 00:00:00 00:00:[address] 350.1.13.58 Health 9.2.7.2.686 [id number] 4 2021-01-26 2021-01-26 Telephone Sarah Herring UTP 6410 [address].2.840.[id number] 00:00:00 00:00:[address] 350.1.13.58 Health 9.2.7.2.686 [id number] 4 2021-01-25 2021-01-25 Orders Sarah Herring UTP [id number] 00:00:00 00:00:[address] 350.1.13.58 Health 9.2.7.2.686 [id number] 4 2021-01-25 2021-01-25 Telephone Pallavi Felix UTP 6410 1.2.84 0.114 [id number] [place] 00:00:00 00:00:[address] 350.1.13.58 Health 9.2.7.2.686 [id number] 4 2021-01-12 2021-01-12 Orders Sarah Herring UTP [id number] 00:00:00 00:00:[address] 350.1.13.58 Health 9.2.7.2.686 [id number] 4 2021-01-03 2021-01-03 Patient Erendira Ibarra UTP 6410 [address].2.[id number] 00:00:00 00:00:[address] 350.1.13.5 8 Health 9.2.7.2.686 [id number] 8 2020-12-31 2020-12-31 Patient Erendira Ibarra UTP 6410 [address].2.[id number] 00:00:00 00:00:[address] 350.1.13.5 8 Health 9.2.7.2.686 [id number] 8 2020-12-28 2020-12-28 Telephone Pallavi Felix UTP [id number] 00:00:00 00:00:[address] 350.1.13.58 Health 9.2.7.2.686 [id number] 4 2020-12-22 2020-12-22 Patient Erendira Ibarra UTP 6410 [id number] 00:00:00 00:00:[address] 350.1.13.5 8 Health 9.2.7.2.686 [id number] 8 2020-11-25 2020-11-25 Telephone Pallavi Felix UTP 64[id number] 00:00:00 00:00:[address] 350.1.13.58 Health 9.2.7.2.686 [id number] 4 2020-11-19 2020-11-19 Telephone Pallavi Felix UTP [id number] 00:00:00 00:00:[address] 350.1.13.58 Health 9.2.7.2.686 [id number] 4 2020-10-08 2020-10-08 Telephone Pallavi Felix UTP [id number] 00:00:00 00:00:[address] 350.1.13.58 Health 9.2.7.2.686 [id number] 4 2020-09-27 2020-09-27 Outpatient MAX AGUILARYu [facility] [id number] SLE 00:00:00 00:00:00 SHIVA 2020-07-22 2020-07-22 Outpatient MAX MILLAN, [facility] [id number] [facility] 00:00:00 00:00:00 SHIVA 2018-11-11 2018-11-11 Appointjeff RODRIGUEZJody NICCI UTP [id number] [place] 14:45:00 14:45:00 t; ALEE Physic Lolis Pérez ROSA, M.D. 2018-09-02 2018-09-02 AppointNICCI Dexter Pedi [id number] [place] 09:45:00 09:45:00 t; STELLA LUQUE, Nephrology Physici STELLA SHAW M.D. & amara Danielle Hypertensio n 2018-09-02 2018-09-02 Appointjeff [facility] Pediatrics [id number] [place] 09:30:00 09:30:00 t; Lolis ESPANA Division of Physici KAYY, [facility] ans Lolis ESPANA Genetics 2018-09-02 2018-09-02 Appointjeff GRAJEDA Pedi [id number] [place] 09:00:00 09:00:00 t; URHIEN, Nephrology Ph chavez CANALES M.D. & Brock Pimentel n M.D. 2018-09-02 2018-09-02 NICCI Mckeon Pedi [id number] [place] 09:00:00 09:00:00 t; SHIVA, Nephrology Greg MILLAN M.D. & Brock Crandall M.D. n 2018-06-27 2018-06-27 [facility] [id number] Common 15:00:00 15:00:00 t [facility] 2018-06-21 2018-06-21 [facility] [id number] Common 12:00:00 12:00:[address] [facility] [address] Family - [facility] Family Medicine [facility] 2017-04-27 2017-04-27 Appointjeff GRAJEDA UTP [id number] [place] 10:45:00 10:45:00 t; TODD LYNN, Physi ci REBEL LYNN, amara LUQUE M.D. M.D. 2017-03-28 2017-03-28 Appointmen FINESSE, UTP UTP [id number] [place] 09:30:00 09:30:00 t; SINDHU KILPATRICK M.D. P hysici FARAH, ans M.D. 2017 2017 Appointmen OB/MD, UTP Coremaker Supervisor [id number] [place] 13:30:00 13:30:00 t; OB/MD, POSPROVIDER Physici POSPROVIDE ans R 2017-02-06 2017-02-06 Appointmen OB/MD, HIGH UTP UTP [id number] UT 10:00:00 10:00:00 t; OB/MD, Phys ici HIGH ans 2017-01-30 2017-01-30 Appointmen FANNINEKG, UTP UTP [id number] [place] 10:30:00 10:30:00 t; WALK-INS Physi ci FANNIRAZAKG, ans WALK-INS 2017-01-30 2017-01-30 Appointmen OB/MD, HIGH UTP UTP [id number] [place] 09:00:00 09:00:00 t; OB/MD, Phys ici HIGH ans 2017-01-02 2017-01-02 Appointmen OB/MD, HIGH UTP UTP [id number] [place] 09:00:00 09:00:00 t; OB/MD, Phys ici HIGH ans 2016-12-28 2016-12-28 Appointmen OB/RES, US UTP UTP [id number] UT 10:00:00 10:00:00 t; OB/RES, Phy sici US ans 2016-12-19 2016-12-19 Appointmen OB/MD, HIGH UTP UTP [id number] UT 09:00:00 09:00:00 t; OB/MD, Phys ici HIGH ans 2016-11-02 2016-11-02 Appointmen OB/MD, HIGH UTP UTP [id number] UT 10:00:00 10:00:00 t; OB/MD, Phys ici HIGH ans 2016-10-19 2016-10-19 Appointmen OB/RES, UTP UTP [id number] UT 14:30:00 14:30:00 t; OB/RES, ULTRASOUND Physici ULTRASOUND ans 2016-10-19 2016-10-19 Appointmen OB/MD, HIGH UTP UTP [id number] [place] 08:30:00 08:30:00 t; OB/MD, Phys ici HIGH ans 2016-10-04 2016-10-04 [facility] [id number] [place] 08:00:00 08:00:00 t; SYMONE MCKAY Physi ci JAIMIN, M.D. ans M.D. 2016-07-31 2016-07-31 [facility] INCLUDE 234 BEDS AT THE [facility] [id number] [place] 09:30:00 09:30:00 t; Lolis ESPANA ans HOPE, M.D. 2015-11-25 2015-11-25 [facility] [id number] [place] 09:30:00 09:30:00 t; PANFILO MORA M.D. Physici KEELY, ans M.D. 2015-05-27 2015-05-27 [facility] [id number] [place] 08:45:00 08:45:00 t; PANFILO MORA M.D. Physici KEELY, ans M.D. 2015-03-08 2015-03-08 [facility]AYY[facility]S INCLUDE 234 BEDS AT THE [facility] [id number] [place] 09:30:00 09:30:00 t; Lolis ESPANA ans HOPE, M.D. 2015-03-08 2015-03-08 [facility] [id number] [place] 09:15:00 09:15:00 t; STELLA LUQUE M.D. Physici MARY, M.D. ans Results Test Description Test Time Test Comments Results Result Comments Source AMMONIA (P) 2021-05-31 00:00:00 Test Item Value Reference Range Interpretation Comme nts AMMONIA (P) (test code = 25 See_Comment [A utomated message] The system which 62838-2) generated this result transmitted reference range : < OR = 72. The reference range was not used to interpret this result as normal/abnormal . CBC (INCLUDES DIFF/PLT)2021-05-31 00:00:00 Test Item Value Reference Range Interpretation Comments WHITE BLOOD CELL COUNT (test code = 4.4 3.8-10.8 6690-2) RED BLOOD CELL COUNT (test code = 4.34 3.80-5.10 789-8) HEMOGLOBIN (test code = 718-7) 12.2 11.7-15.5 HEMATOCRIT (test code = 4544-3) 36.5 35.0-45.0 MCV (test code = 787-2) 84.1 80.0-100.0 MCH (test code = 785-6) 28.1 27.0-33.0 MCHC (test code = 786-4) 33.4 32.0-36.0 RDW (test code = 788-0) 12.5 11.0-15.0 PLATELET COUNT (test code = 777-3) 354 140-400 MPV (test code = 776-5) 9.4 7.5-12.5 ABSOLUTE NEUTROPHILS (test code = 2785 1841-4005 751-8) ABSOLUTE LYMPHOCYTES (test code = 3835 247-9292 731-0) ABSOLUTE MONOCYTES (test code = 742-7) 290 200-950 ABSOLUTE EOSINOPHILS (test code = 110 15-500 711-2) ABSOLUTE BASOPHILS (test code = 704-7) 62 0-200 NEUTROPHILS (test code = 770-8) 63.3 LYMPHOCYTES (test code = 736-9) 26.2 MONOCYTES (test code = 5905-5) 6.6 EOSINOPHILS (test code = 713-8) 2.5 BASOPHILS (test code = 706-2) 1.4 LIPID [id number] 00:00:00 Test Item Value Reference Range Interpretation Comments CHOLESTEROL, TOTAL (test 182 <200 code = 2093-3) HDL CHOLESTEROL (test 45 See_Comment [Auto mated message] code = 5-9) The system [facility] generated this result transmitted ref erence range: > OR = 5 0. The reference range was not used to interpr et this result as normal/abnormal . TRIGLYCERIDES (test code 106 <150 = 2571-8) LDL-CHOLESTEROL (test 116 code = 13018-6) CHOL/HDLC RATIO (test 4.0 <5.0 code = 9830-1) NON HDL CHOLESTEROL (test 137 <130 code = 49413-4) [QL] URINALYSIS, [id number] 11:30:00 Test Item Value Reference Range Interpretation Comments COLOR; Normal (test YELLOW YELLOW N code = 5778-6) APPEARANCE (test code CLEAR CLEAR N = APPEARANCE) SPECIFIC GRAVITY; 1.009 1.001-1.035 N Normal (test code = 2965-2) PH; Normal (test code 5.5 5.0-8.0 N = 2756-5) GLUCOSE; Normal (test NEGATIVE NEGATIVE N code = 1547-9) BILIRUBIN; Normal NEGATIVE NEGATIVE N (test code = 21298-2) KETONES; Normal (test NEGATIVE NEGATIVE N code = 66964-0) OCCULT BLOOD; Normal NEGATIVE NEGATIVE N (test code = 56043-8) PROTEIN; Normal (test NEGATIVE NEGATIVE N code = 22831-5) NITRITE; Normal (test NEGATIVE NEGATIVE N code = 40070-6) LEUKOCYTE ESTERASE NEGATIVE NEGATIVE N (test code = LEUKOCYTE ESTERASE) WBC; Normal (test code NONE SEEN See_Comment N [Aut omated message] = 6690-2) The system [facility] generated this result transmitted ref erence range: < OR = 5 . The reference range was not used to int erpret this result as normal/abnormal . RBC; Normal (test code NONE SEEN See_Comment N [Aut omated message] = 789-8) The system [facility] generated this result transmitted ref erence range: < OR = 2 . The reference range was not used to int erpret this result as normal/abnormal . SQUAMOUS EPITHELIAL NONE SEEN See_Comment N [Automa cornell message] CELLS; Normal (test The syst em which code = 78644-0) generated th is result transmitted ref erence range: < OR = 5 . The reference range was not used to int erpret this result as normal/abnormal . BACTERIA; Abnormal MANY NONE SEEN A (test code = 630-4) HYALINE CAST; Normal NONE SEEN NONE SEEN N (test code = 13126-9) [facility][QL] CBC (INCLUDES DIFF/PLT)2020-07-09 11:30:00 Test Item Value Reference Range Interpretation Comments WHITE BLOOD CELL COUNT 4.9 {Thousand/u} 3.8-10.8 N (test code = WHITE BLOOD CELL COUNT) RED BLOOD CELL COUNT (test 4.03 {Million/uL} 3.80-5.10 N code = RED BLOOD CELL COUNT) HEMOGLOBIN; Below Low 11.4 g/dl 11.7-15.5 Threshold (test code = 37200-4) HEMATOCRIT; Normal (test 35.6 % 35.0-45.0 N code = 4544-3) MCV; Normal (test code = 88.3 fL 80.0-100.0 N 787-2) MCHC; Normal (test code = 32.0 g/dl 32.0-36.0 N 43430-6) RDW; Normal (test code = 12.7 % 11.0-15.0 N 788-0) PLATELET COUNT; Normal 342 {Thousand/u} 140-400 N (test code = 777-3) MPV; Normal (test code = 9.6 fL 7.5-12.5 N 61951-0) ABSOLUTE NEUTROPHILS (test 3048 {cells/uL} 2011-9307 N code = ABSOLUTE NEUTROPHILS) ABSOLUTE LYMPHOCYTES [...] Normal (test 9.5 % N code = 95146-4) EOSINOPHILS; Normal (test 2.4 % N code = 15359-6) BASOPHILS; Normal (test 0.8 % N code = 36655-7) [facility][QL] LIPID [id number] 11:30:00 Test Item Value Reference Range Interpretation [...] (test code = <100 Zhao irable range 37482-7) <100 mg/dL for primary prevent ion; <70 mg/dL for patients with C HD or diabetic patien ts with > or = 2 C HD risk factors. L DL-C is now calculat ed using the Ruben calculation, wh ich is a validated novel method providin g better accuracy than the Friedewald equation in the estimation of L DL-C. Johnson SS et al . TIARRA. 2013;310( 19): 5485-9669 (http://educati onIntrinsiq Materials. com/f aq/SKT713) CHOL/HDLC RATIO 2.9 {CALC} <5.0 N (test code = CHOL/HDLC RATIO) NON HDL CHOLESTEROL 99 {MG/DL JASBIR} <130 N For pa travis with (test code = NON HDL diabete s plus 1 CHOLESTEROL) major ASCVD ris k factor, treatin g to a non-HDL-C goa l of <100 mg/dL (LDL -C of <70 mg/dL) is considered a therapeutic opt ion. [facility][QL] [id number] 11:30:00 Test Item Value Reference Range Interpretation Comments MAGNESIUM (test code = MAGNESIUM) 1.8 mg/dl 1.5-2.[address] [facility][QL] PHOSPHATE ( PHOSPHORUS)2020-07-09 11:30:00 Test Item Value Reference Range Interpretation Comments PHOSPHATE ( PHOSPHORUS) (test 3.2 mg/dl 2.5-4.5 N code = PHOSPHATE ( PHOSPHORUS)) [facility][QL] CMP [id number] 11:30:00 Test Item Value Reference Range Interpretation Comments GLUCOSE; Normal 89 mg/dl 65-99 N Fasting refe rence (test code = interval 1547-9) UREA NITROGEN (BUN) 20 mg/dl 7-25 N (test code = UREA NITROGEN (BUN)) CREATININE (test 1.03 mg/dl 0.50-1.10 N code = CREATININE) eGFR NON-AFR. 70 {ML/MIN/1.7} See_Comment N [Automated SALVADOREAN (test code message] The system = eGFR NON-AFR. which genera cornell SALVADOREAN) this result transmitted reference range : > OR = 60. The reference range was not used to interpret this result as normal/abnormal . eGFR 82 {ML/MIN/1.7} See_Comment N [Automated SALVADOREAN (test code message] The system = eGFR which generat ed SALVADOREAN) this result transmitted reference range : > [...] mg/dl 0.2-1.2 N Normal (test code = 92722-4) ALKALINE 52 u/l 31-125 N PHOSPHATASE (test code = ALKALINE PHOSPHATASE) AST; Normal (test 20 u/l 10-30 N code = 1916-6) ALT; Normal (test 20 u/l 6-29 N code = 1742-6) [facility][QL] PTH, INTACT (WITHOUT CALCIUM)2020-07-09 11:30:00 Test [...] High REPORT COMMENT:FASTING:YESUT Physicians[Q] CYSTATIN C WITH [id number] 11:30:00 Test Item Value Reference Range Interpretation Comments CYSTATIN C (test 1.38 mg/L 0.52-1.24 code = CYSTATIN C) eGFR (test code = 52 {ML/MIN/1.7} See_Comment [Autom ated message] eGFR) The system [facility] generated this result transmitted ref erence range: > OR = 6 0. The reference range was not used to int erpret this result as normal/abnormal . REPORT COMMENT:FASTING:YESUT [facility]] [id number] 12:13:01 Test Item Value Reference Range Interpretation Comments Insulin Level Total 4.0 {uIU/ml} Referenc e Ranges for (test code = 3695-4) Insulin after 12-hour fast: 3-19 uIU/ mL, a non-fastingrang e has not been establ ished. [facility]] CMP [id number] 12:13:01 Test Item Value Reference Range Interpretation Comments Sodium Level 142 {mEq/l} 135-145 (test code = 2951-2) Potassium Level 4.3 {mEq/l} 3.5-5.1 (test code = 2823-3) Chloride Level; 110 {mEq/l} 95-109 Above High Threshold (test code = 5-0) Carbon Dioxide 25 {mEq/l} 24-32 (test code = 8-9) AGAP (test code = 11.3 {mEq/l} 10.0-20.0 84058-5) Glucose Lvl (test 81 mg/dl 70-99 Adult refe rence range code = 2345-7) values reflec t the clinical guidel inesof the [place] Diabet es Association. Creatinine Lvl 1.10 mg/dl 0.50-1.40 (test code = 2160-0) Blood Urea 18 mg/dl 7-22 Nitrogen (test code = 3094-0) BUN/Creatinine 16 6-25 Ratio (test code = 3097-3) Total Protein 7.3 g/dl 6.4-8.4 (test code = 2885-2) Albumin Lvl (test 3.9 g/dl 3.5-5.0 code = 1751-7) Globulin (test 3.4 g/dl 2.7-4.2 code = 04384-1) A/G Ratio (test 1.1 0.7-1.6 code = 1759-0) Calcium Level 9.2 mg/dl 8.5-10.5 Total (test code = 03640-0) ALT (test code = 18 u/l 0-65 1743-4) AST (test code = 16 u/l 0-37 01834-1) Alk Phos (test 57 u/l 39-136 code = 1783-0) Bili Total (test 0.3 mg/dl 0.2-1.3 code = 1975-2) eGFR (test code = 66 The eGFR i s calculated 83809-9) {ML/MIN/1.7} using the CKD-E PI formula. In [...] be multiplied by t he estimated BMI. [facility]] LIPID [id number] 12:13:01 Test Item Value Reference Range Interpretation Comments Chol (test code = 2093-3) 124 mg/dl <=199 Trig (test code = 2571-8) 98 mg/dl <=149 HDL Cholesterol; Below Low 35 mg/dl >=61 Threshold (test code = 2085-9) CHD Risk; Below Low Threshold (test 3.54 3.90-5.80 code = 56259-0) LDL (test code = 55785-7) 69 mg/dl <=99 VLDL (test code = VLDL) 20 [facility]] PHOSPHATE ( PHOSPHORUS)2018-09-02 12:13:01 Test Item Value Reference Range Interpretation Comments Phosphorus Level (test code = 3.3 mg/dl 2.5-4.5 2777-1) [facility][QL] T4, [id number] 12:13:01 Test Item Value Reference Range Interpretation Comments T4 Free (test code = 3024-7) 1.10 ng/dl 0.76-1.46 [facility][QL] THYROID [id number] 12:13:01 Test Item Value Reference Range Interpretation Comments TSH (test code = 24379-4) 1.570 {uIU/ml} 0.360-3.740 T3 Uptake (test code = 3050-2) 35 % 31-39 Thyroxine (test code = 3026-2) 9.0 ug/dL 4.7-13.3 [facility][] Free Thyroxine [id number] 12:13:01 Test Item Value Reference Range Interpretation Comments Free Thyroxine Index (test code = 3.2 25611-5) [facility][QL] CBC (INCLUDES DIFF/PLT)2018-09-02 12:13:01 Test Item Value Reference Range Interpretation Comments WBC (test code = 6690-2) 4.0 {K/CMM} 3.7-10.4 RBC; Below Low Threshold (test 3.92 {M/CMM} 4.20-5.40 code = 789-8) Hgb; Below Low Threshold (test 11.4 g/dl 12.0-16.0 code = 718-7) Hct; Below Low Threshold (test 33.8 % 36.0-48.0 code = 77886-1) MCV (test code = 787-2) 86.1 fL 80.0-98.0 MCH (test code = 785-6) 29.1 pg 27.0-31.0 MCHC (test code = 786-4) 33.8 g/dl 32.0-36.0 RDW (test code = 788-0) 13.4 % 11.5-14.5 Platelet (test code = 97607-3) 304 {K/CMM} 133-450 Mean Platelet Volume (test code 8.1 fL 7.4-10.4 = 08154-8) [facility][QL] [id number] 12:13:01 Test Item Value Reference Range Interpretation Comments Segmented Neutrophils (test code 60.2 % 45.0-75.0 = 81841-8) Monocytes (test code = 52252-2) 7.5 % 2.0-12.0 Lymphocytes (test code = 23740-2) 28.8 % 20.0-40.0 Eosinophils (test code = 89783-1) 2.7 % 0.0-4.0 Basophils (test code = 706-2) 0.8 % 0.0-1.0 Segs-Bands # (test code = 2.4 {K/CMM} 1.5-8.1 10036-8) Lymphocytes # (test code = 1.1 {K/CMM} 1.0-5.5 81714-9) Monocytes # (test code = 59536-7) 0.3 {K/CMM} 0.0-0.8 Eosinophils # (test code = 0.1 {K/CMM} 0.0-0.5 36204-0) [facility][QLH] PTH, INTACT (WITHOUT CALCIUM)2018-09-02 12:13:01 Test Item Value Reference Range Interpretation Comments Parathyroid Hormone Intact; Above 300.4 pg/ml 18.4-80.1 High Threshold (test code = 2731-8) [facility][QLH] HEMOGLOBIN [id number] 12:13:01 Test Item Value Reference Range Interpretation Comments Hemoglobin A1c (test code = 4548-4) 4.8 % <=5.6 [facility][QH] THYROGLOBULIN [id number] 12:13:01 Test Item Value Reference Range Interpretation Comments Thyroglobulin Antibody (test code = <15 <=60 63873-0) [facility][QL[facility]] THYROID PEROXIDASE [id number] 12:13:01 Test Item Value Reference Range Interpretation Comments Thyroid Peroxidase (TPO) Antibody 36 {IU/ml} <=60 (test code = 01381-1) [facility][QH] [id number] 12:13:01 Test Item Value Reference Range Interpretation Comments Proinsulin Level (test 3.1 pmol/L 0.0-10.0 Perfo rmed At: BN code = Proinsulin [facility] Level) [address] [place], [place] [id number] ra Miguelina RICHARDSON Ph:[phone] [facility][QLH] TSH, 3RD [id number] 12:00:01 Test Item Value Reference Range Interpretation Comments TSH (test code = Cancel Reason: System 79896-2) Cancel [facility][O] Urine Dipstick (In Office)2018-09-02 10:25:00 Test Item Value Reference Range Interpretation Comments Glucose (test code = Glucose) NEGATIVE N LEUKOCYTES (test code = NEGATIVE N LEUKOCYTES) NITRITE; Normal (test code = NEGATIVE N 88438-7) UROBILINOGEN; Normal (test code = 0.2 N 39795-7) PROTEIN (test code = 89288-2) TRACE pH (test code = pH) 6.0 N URINE BLOOD; Normal (test code = NEGATIVE N 53259-5) SPECIFIC GRAVITY; Normal (test 1.020 N code = 2965-2) KETONES; Normal (test code = NEGATIVE N 00843-9) BILIRUBIN; Normal (test code = NEGATIVE N 05968-6) COLOR URINE (test code = 5778-6) DARK YELLOW [facility] Thyroid [id number] 11:49:00EXAM: US THYROIDDATE: 07/10/2018 11:49 CDTINDICATION: Q85.1 [...] Signed by: Román Pastor MD 07/10/1914:37FINAL REPORTUT PhysiciansI Brain w/wo contrast [id number] 12:43:00EXAM: MRI BRAIN WITH AND WITHOUT CONTRASTDATE: [...] Trav AraizaDictated Date/time: 06/21/18 08:20Electronically Signed by: Trav Araiza 06/22/1907:26FINAL REPORTUT [facility] Abdomen with and without contrast [id number] 12:43:00EXAM: MR ABDOMEN WITHOUT AND WITH CONTRASTDATE: [...] liver.Continue surveillance.--This report was dictated by a Offset Lithographic Press Setter/Fellow/Physician Silverware Supervisor. Ihave personallyreviewed the images as well as the interpretation and agree with the findings.Read by: Anirudh Baum MD Resident/Fellow/PhysicianAssistant: Anirudh Baum MDDictated Date/time: 9 09:16Electronically Signed by: Jeffrey Cifuentes MD 06/21/1910:35FINAL REPORTUT PhysiciansCT Chest wo contrast [id number] 12:35:00EXAM: CT CHEST WITHOUT CONTRASTDATE: 06/20/2018 12:35 CDTINDICATION: - Q85.1 Tuberous sclerosisTECHNIQUE: Volumetric CT acquisition of the chest was obtained withoutcontrast. Axial CT images were obtained at 1.25 mm thin slices. Sagittal,coronal and axial MIP reformatted images were reconstructed and ob tained at theworkstation.Total Exam DLP: 377.25 mGy-- cmCOMPARISON: [...] below the diaphragm, please reference theconcomitant abdominal MR report from the same day 06/20/2018.No enlarged mediastinal or axillary lymph nodes.Trachea and central bronchi are clear. Note is made of a tracheal bronchuswhich supplies the apical segment of the right upper lobe, an anatomic variant.There are diffuse small thin-walled pulmonary air cysts throughoutthe lungsbilaterally from top to bottom. These have increased in size and number [id number]. There are numerous pulmonary nodules scattered throughout all lobes ofboth lungs, some solid and some groundglass. They have increased sinceSeptember 2014, ranging in size from 2 to 10 mm.There are sclerotic lesions in the bones with a posterior predilection,predominantly involving the posterior elements of the spine.IMPRESSION:1. 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 Numerous pulmonary nodules scattered throughout [...] Consider further evaluation with thyroidultrasound, as clinically indicated.5.Sclerotic lesions in the thoracic skeleton with a posterior predilection,predominantly involving theposterior elements of the spine. This has notsignificantly changed and is an osseous manifestation of tuberous sclerosiscomplex.--Read by: Steph Hopkins MDDictated Date/time: 06/20/18 15:50Electronically Signed by: Steph Hopkins MD 06/21/1915:03FINAL REPORTUT [facility]icians[[facility]] CBC (INCLUDES DIFF/PLT)2017-01-30 10:08:01 Test Item Value Reference Range Interpretation Comments WBC (test code = WBC) 6.2 {K/CMM} 3.7-10.4 RBC (test code = RBC) 3.31 {M/CMM} 4.20-5.40 Hgb; Below Low Threshold (test 10.1 g/dl 12.0-16.0 code = 54817-8) Hct; Below Low Threshold (test 29.4 % 36.0-48.0 code = 4544-3) MCV (test code = MCV) 88.6 fL 80.0-98.0 MCH (test code = MCH) 30.6 pg 27.0-31.0 MCHC (test code = MCHC) 34.5 g/dl 32.0-36.0 RDW (test code = RDW) 13.0 % 11.5-14.5 Platelet (test code = 777-3) 208 {K/CMM} 133-450 Mean Platelet Volume (test code 8.0 fL 7.4-10.4 = Mean Platelet Volume) [facility]] [id number] 10:08:01 Test Item Value Reference Range Interpretation Comments Segmented Neutrophils; Above High 78.2 % 45.0-75.0 Threshold (test code = 77087-5) Monocytes # (test code = 37484-3) 0.4 {K/CMM} 0.0-0.8 Lymphocytes (test code = 12.9 % 20.0-40.0 Lymphocytes) Eosinophils # (test code = 0.2 {K/CMM} 0.0-0.5 05106-7) Basophils # (test code = 69031-5) 0.0 {K/CMM} 0.0-0.2 Segs-Bands # (test code = 4.9 {K/CMM} 1.5-8.1 17280-0) Lymphocytes #; Below Low 0.8 {K/CMM} 1.0-5.5 Threshold (test code = 09212-1) [facility]] [id number] 10:08:01 Test Item Value Reference Range Interpretation Comments RPR (test code = 28792-9) Non Reactive Non Reactive [facility][H] HIV 4th Gen w/ [id number] 10:08:01 Test Item Value Reference Range Interpretation Comments HIV Ag/Ab 4th Gen (test code = HIV Negative Negative Ag/Ab 4th Gen) [facility][QH] STREPTOCOCCUS, GROUP B CULTURE (Genital Strep Screen) 2017-01-30 10:08:01 Test Item Value Reference Range Interpretation Comments FINAL REPORT (test No Beta-Hemolytic code = FINAL REPORT) Streptococci Isolated [facility]
[2022-03-28] MEDS ORDERED: dexAMETHasone 10 MG/ML VIAL ONE (13:52)
[2022-03-28] MEDS ORDERED: HYDROCODONE/CHLORPHEN 5 ML/OSYR ONE (13:52)
[2022-03-28 14:45] LABS: SARS-COV-2 RT PCR NEGATIVE (NEGATIVE)
--- NOTE | 2022-03-28 14:56 | ER ---
Nurse's Notes [facility] Name: Jaci Arora Age: 37 yrs Sex: Female : 1985 Arrival Date: 03/28/2022 Time: 12:20 Bed 9 Private MD: Diagnosis: Acute upper respiratory infection, unspecified Presentation: 03/28 12:41 Chief complaint: Patient states: Cough, cold, nasal congestion for 1 week. + sore ll1 throat that radiates into R ear. Coronavirus screen: Vaccine status: Patient reports receiving the 1st dose of the Covid vaccine. Client denies travel out of the [place] in the last 14 days. congestion, cough unrelated to allergies, fatigue, headache, sore throat, Client presents with at least one sign or symptom that may indicate coronavirus-19. Standard/surgical mask placed on the client. Ebola Screen: Patient denies travel to an Ebola-affected area in the 21 days before illness onset. Resp Distress? No respiratory distress is noted at this time. Initial Sepsis Screen: Does the patient meet any 2 criteria? No. Patient's initial sepsis screen is negative. Does the patient have a suspected source of infection? Yes: Productive cough/pneumonia. Risk Assessment: Do you want to hurt yourself or someone else? Patient reports no desire to harm self or others. Onset of symptoms was March 21, 2022. 12:41 Method Of Arrival: Ambulatory ll1 12:41 Acuity: YAIR 4 ll1 Triage Assessment: 12:43 General: Appears in no apparent distress. Behavior is calm, cooperative, appropriate ll1 for age. Pain: Complains of pain in throat Quality of pain is described as aching. EENT: Reports nasal congestion nasal discharge pain when swallowing. Respiratory: Reports cough that is pain with cough. Historical: - Allergies: 12:43 PENICILLINS; ll1 - PMHx: 12:43 TSC; ll1 - PSHx: 12:43 section; ll1 - Immunization history:: Client reports receiving the 1st dose of the Covid vaccine. - Social history:: Smoking status: Patient denies any tobacco usage or history of. Screenin:04 [facility] ED Fall Risk Assessment (Adult) History of falling in the last 3 months, em6 including since admission No falls in past 3 months (0 pts) Confusion or Disorientation No (0 pts) Intoxicated or Sedated No (0 pts) Impaired Gait No (0 pts) Mobility Assist Device Used No (0 pt) Altered Elimination No (0 pt) Score/Fall Risk Level 0 - 2 = Low Risk Oriented to surroundings, Maintained a safe environment, Educated pt \T\ family on fall prevention, incl call for assistance when getting out of bed, Assessed \T\ reinforced patient's understanding of fall precautions, Provided non-skid footwear, Hourly rounding (assess needs \T\ fall precautionary measures) done, Used ambulatory aids as needed (educated on \T\ assisted with), Used gait belt as appropriate. Abuse screen: Denies threats or abuse. Nutritional screening: No deficits noted. Tuberculosis screening: No symptoms or risk factors identified. Assessment: 14:03 General: Appears in no apparent distress. Behavior is cooperative. Pain: Denies pain. em6 Neuro: Level of Consciousness is awake, alert, obeys commands, Oriented to person, place, time, situation. Cardiovascular: Capillary refill < 3 seconds Patient's skin is warm and dry. Respiratory: Reports cough that is productive, Airway is patent Respiratory effort is even, unlabored, Respiratory pattern is regular, symmetrical, Breath sounds are clear bilaterally. GI: No signs and/or symptoms were reported involving the gastrointestinal system. : No signs and/or symptoms were reported regarding the genitourinary system. EENT: Reports nasal congestion. Derm: No signs and/or symptoms reported regarding the dermatologic system. Musculoskeletal: Circulation, motion, and sensation intact. Range of motion: intact in all extremities. 15:01 Reassessment: Patient appears in no apparent distress at this time. No changes from em6 previously documented assessment. Patient and/or family updated on plan of care and expected duration. Pain level reassessed. Patient is alert, oriented x 3, equal unlabored respirations, skin warm/dry/pink. Patient states symptoms have improved. Vital Signs: 12:41 BP 123 / 71; Pulse 89; Resp 17; Temp 99.0; Pulse Ox 98% ; Weight 61.23 kg; Height 5 ft. ll1 2 in. (157.48 cm); Pain 4/10; 13:46 BP 120 / 87; Pulse 84; Resp 18; Pulse Ox 100% on R/A; em6 15:19 BP 111 / 77; Pulse 78; Resp 18; Pulse Ox 100% on R/A; em6 12:41 Body Mass Index 24.69 (61.23 kg, 157.48 cm) ll1 ED Course: 12:20 Patient arrived in ED. mr 12:43 Triage completed. ll1 12:43 Arm band placed on. ll1 13:15 Mike Luevano NP is PHCP. pm1 13:15 Jas Minor MD is Attending Physician. pm1 13:46 Meghann Evans RN is Primary Nurse. em6 14:03 Strep Sent. em6 14:03 COVID-19/FLU A+B Sent. em6 14:04 Bed in low position. Call light in reach. Side rails up X 1. Pulse ox on. NIBP on. Warm em6 blanket given. 15:02 No provider procedures requiring assistance completed. Patient did not have IV access em6 during this emergency room visit. Administered Medications: 13:46 Drug: Decadron (dexamethasone) 10 mg Route: IM; Site: left gluteus; em6 14:20 Follow up: Response: No adverse reaction em6 13:46 Drug: Tussionex Pennkinetic ER (chlorpheniramine-hydrocodone) Suspension 5 ml Route: PO;em6 14:40 Follow up: Response: No adverse reaction em6 Medication: 15:02 VIS not applicable for this client. em6 Outcome: 14:56 Discharge ordered by . pm1 15:20 Discharged to home ambulatory. em6 15:20 Condition: stable 15:20 Discharge instructions given to patient, Instructed on discharge instructions, follow up and referral plans. medication usage, Demonstrated understanding of instructions, follow-up care, medications, Prescriptions given X 2. 15:20 Patient left the ED. em6 Signatures: Freddie Stella Luevano Mike, CLOTH MERCERIZER BACK TENDER CLOTH MERCERIZER BACK TENDER pm1 Annette Khalil RN RN ll1 Meghann Evans RN RN em6
--- NOTE | 2022-03-28 14:57 | EDPHYS ---
Physician Documentation [facility] Name: Jaci Arora Age: 37 yrs Sex: Female : 1985 Arrival Date: 03/28/2022 Time: 12:20 Bed 9 Private MD: ED Physician Jas Minor HPI: 03/28 13:23 This 37 yrs old Female presents to ER via Ambulatory with complaints of Cough, pm1 Congestion. 13:23 The patient or guardian reports cough, with no sputum, Nasal congestion. Sore throat. pm1 13:23 Onset: The symptoms/episode began/occurred 1 week(s) ago. Severity of symptoms: in the pm1 emergency department the symptoms are unchanged. Modifying factors: The symptoms are alleviated by nothing, the symptoms are aggravated by nothing. Associated signs and symptoms: Pertinent positives: rhinorrhea, sore throat, right ear pain, subjective fever, Pertinent negatives: chest pain, diarrhea, vomiting, shortness of breath. The patient has not recently seen a physician. Historical: - Allergies: 12:43 PENICILLINS; ll1 - PMHx: 12:43 TSC; ll1 - PSHx: 12:43 section; ll1 - Immunization history:: Client reports receiving the 1st dose of the Covid vaccine. - Social history:: Smoking status: Patient denies any tobacco usage or history of. ROS: 13:23 Eyes: Negative for injury, pain, redness, and discharge. pm1 13:23 Neck: Negative for injury, pain, and swelling. 13:23 Cardiovascular: Negative for chest pain, palpitations, and edema. 13:23 Abdomen/GI: Negative for abdominal pain, nausea, vomiting, diarrhea, and constipation, Back: Negative for injury and pain, MS/Extremity: Negative for injury and deformity, Skin: Negative for injury, rash, and discoloration, Neuro: Negative for headache, weakness, numbness, tingling, and seizure. 13:23 Constitutional: Positive for body aches, fever, Negative for poor PO intake. 13:23 ENT: Positive for rhinorrhea, sinus congestion, sore throat. 13:23 Respiratory: Positive for cough, Negative for shortness of breath. 13:23 All other systems are negative. Exam: 13:23 Constitutional: This is a well developed, well nourished patient who is awake, alert, pm1 and in no acute distress. Head/Face: Normocephalic, atraumatic. 13:23 Back: No spinal tenderness. No costovertebral tenderness. Full range of motion. Skin: Warm, dry with normal turgor. Normal color with no rashes, no lesions, and no evidence of cellulitis. MS/ Extremity: Pulses equal, no cyanosis. Neurovascular intact. Full, normal range of motion. 13:23 Eyes: Exam is negative for acute changes, Extraocular movements: no acute changes, Conjunctiva: no acute changes, no injection. 13:23 ENT: External ear(s): no acute changes, Ear canal(s): no acute changes, TM's: no acute changes, Mouth: no acute changes, Lips: normal, moist, Oral mucosa: normal, pink and intact, moist. 13:23 Cardiovascular: Exam negative for acute changes, Rate: normal, Rhythm: regular, Pulses: no pulse deficits are appreciated. 13:23 Respiratory: Exam negative for acute changes, respiratory distress, shortness of breath, Breath sounds: are clear throughout. 13:23 Neuro: Exam negative for acute changes, Orientation: is normal, Mentation: is normal, Motor: is normal, moves all fours. Vital Signs: 12:41 BP 123 / 71; Pulse 89; Resp 17; Temp 99.0; Pulse Ox 98% ; Weight 61.23 kg; Height 5 ft. ll1 2 in. (157.48 cm); Pain 4/10; 13:46 BP 120 / 87; Pulse 84; Resp 18; Pulse Ox 100% on R/A; em6 15:19 BP 111 / 77; Pulse 78; Resp 18; Pulse Ox 100% on R/A; em6 12:41 Body Mass Index 24.69 (61.23 kg, 157.48 cm) ll1 MDM: 13:15 Patient medically screened. pm1 14:55 Data reviewed: vital signs. Data interpreted: Pulse oximetry: on room air is 100 %. pm1 Interpretation: normal. Counseling: I had a detailed discussion with the patient and/or guardian regarding: the historical points, exam findings, and any diagnostic results supporting the discharge/admit diagnosis, lab results, the need for outpatient follow up, to return to the emergency department if symptoms worsen or persist or if there are any questions or concerns that arise at home. 14:55 ED course: Patient reports improvement with medications given in ER. We will send pm1 patient home with Medrol Dosepak and cough suppressant/decongestion. 15:01 ED course: [place] reviewed. pm1 03/28 13:22 Order name: COVID-19/FLU A+B; Complete Time: 14:50 pm1 03/28 13:22 Order name: Strep; Complete Time: 14:33 pm1 03/28 14:36 Order name: Throat Culture EDMS Administered Medications: 13:46 Drug: Decadron (dexamethasone) 10 mg Route: IM; Site: left gluteus; em6 14:20 Follow up: Response: No adverse reaction em6 13:46 Drug: Tussionex Pennkinetic ER (chlorpheniramine-hydrocodone) Suspension 5 ml Route: PO;em6 14:40 Follow up: Response: No adverse reaction em6 Disposition Summary: 03/28/22 14:56 Discharge Ordered Location: Home pm1 Problem: new pm1 Symptoms: have improved pm1 Condition: Stable pm1 Diagnosis - Acute upper respiratory infection, unspecified pm1 Followup: pm1 - With: Emergency Department - When: As needed - Reason: Worsening of condition Followup: pm1 - With: Private Physician - When: 2 - 3 days - Reason: Recheck today's complaints, Continuance of care, Re-evaluation by your physician Discharge Instructions: - Discharge Summary Sheet pm1 - Antibiotic Resistance pm1 - Upper Respiratory Infection, Adult pm1 Forms: - Medication Reconciliation Form pm1 - Thank You Letter pm1 - Antibiotic Education pm1 - Prescription Opioid Use pm1 Prescriptions: - Medrol (Taran) 4 mg Oral Tablets, Dose Pack - take 1 tablet by ORAL route as directed - follow package instructions; 1 pm1 packet; Refills: 0, Product Selection Permitted - Guaifenesin AC 10-100 mg/5 mL Oral Liquid - take 10 milliliters by ORAL route every 4 hours As needed; 240 milliliter; pm1 Refills: 0, Product Selection Permitted Signatures: Dispatcher [employer] EDMS Mike Luevano NP [employer]CH[employer]IC pm1 Annette Khalil RN RN ll1 Meghann Evans RN RN em6
[2022-03-28 15:24] VITALS: TEMP 99
[2022-03-28 15:25] VITALS: O2SAT 100
[2022-03-28 15:26] VITALS: BP 111/77
== END 2022-03-28 15:20 | disposition home or self-care (01) ==
LOC: ER 12:17
DX: J06.9 Acute upper respiratory infection, unspecified (principal); Z20.822 Contact with and (suspected) exposure to COVID-19; Z88.0 Allergy status to penicillin
CPT/HCPCS: 87070; 87081; 0240U; J1100; 96372; 99284

== ENCOUNTER 2024-05-22 10:01 | Emergency (ER) | payer OTHER ==
--- NOTE | 2024-05-22 10:52 | RAD REPORT ---
EXAM: Knee Right 3 View INDICATION: PAIN COMPARISON: None FINDINGS: No acute fracture. No significant knee effusion. No significant focal degenerative changes. Other: n/a IMPRESSION: No evidence of acute osseous abnormality involving the imaged knee.
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
[2024-05-23 14:21] VITALS: BP 127/77; TEMP 97.5; O2SAT 98
== END 2024-05-22 11:22 | disposition home or self-care (01) ==
LOC: ER 10:01
DX: M25.561 Pain in right knee (principal)
CPT/HCPCS: 99282